=== PATIENT | male | born 1965 | race Caucasian/White ===

== ENCOUNTER → 2017-04-25 | Outpatient (CLI) | payer OTHER ==
[~2017-04-25] VITALS: Ht 172.7 cm; Wt 148.3 kg
[~2017-04-25] MED LIST: ADVIN25/60 INH; ALBUAER19 INH; AMLO5TAB2 PO; AZIT250T PO; CETI10TA10 PO; CHN/1 PO; CLON1TAB3 PO; CRS/10 PO; CYCL10TA6 PO; FLUO40CA8 PO; HYDR50TA3 PO; LEVO88TA3 PO; LOSA100T65 PO; MONT1TAB3 PO; POTA-327 PO; PRED20TA PO
[2017-04-25 15:40] VITALS: BP 138/88; PULSE 88; Ht 172.7 cm; Wt 148.3 kg
== END | disposition home or self-care (01) ==
LOC: C.NEUR 13:30
PROVIDERS: ATTEND Physician Assistant Medical
DX: G47.33 Obstructive sleep apnea (adult) (pediatric) (principal); J44.9 Chronic obstructive pulmonary disease, unspecified

== ENCOUNTER → 2017-11-10 | Outpatient (CLI) | payer OTHER ==
[~2017-11-10] VITALS: Ht 175.3 cm; Wt 153.2 kg
[2017-11-10 15:23] VITALS: BP 152/80; PULSE 104; BMI 49.9
[2017-11-10 15:24] VITALS: BP 152/80; PULSE 104; Ht 175.3 cm; Wt 153.2 kg
== END | disposition home or self-care (01) ==
LOC: C.NEUR 14:22
PROVIDERS: ATTEND Internal Medicine Pulmonary Disease
DX: G47.33 Obstructive sleep apnea (adult) (pediatric) (principal); G25.81 Restless legs syndrome; G47.61 Periodic limb movement disorder

== ENCOUNTER → 2017-11-25 | Outpatient (CLI) | payer OTHER ==
--- NOTE | 2017-11-26 04:23 | PAP/PSG TECHNICIAN REPORT ---
[facility] Marine Plumber Polysomnogram Report Study name: None Report date: 11/26/2017 Study date: 11/25/2017 Referring Physician: DR. OTTO Name: CASSIE MCGILL Interpreting Physician: Ham Otto M.D. Date of : 1965 Marine Plumber: John German RPSGT. Sex: Male Age: 51 StudyType: PSG PAP Weight: 337 lbs 21.5 INCHES Height: 51 years, Height 5' 9" Neck Circum: BMI: 49.76 Medications: ADVAIR DISKUS 250-50 MCG, AMLODIPINE BESYLATE 5 MG, CHANTIX, CLONAZEPAM 1 MG, CRESTOR 10 MG, FLUOXETINE HCL 20 MG, HYDROCHLOROTHIAZIDE 50 MG, LEVOTHYROXINE SODIUM 88 MCG, LOSARTAN POTASSIUM 100 MG, MONTELUKAST SODIUM 10 MG, OMEPRAZOLE 20 MG, POTASSIUM CHLORIDE JANELL ER 10 MEQ, TYLENOL 325 MG, VENTOLIN HFA 108 90 BASE, VIT D Patient History PATIENT HAD A SLEEP STUDY DONE IN 2012 WHICH HE WAS POSITIVE FOR KAMRYN WITH AN AHI OF 40. HE CURRENTLY WEARS BIPAP OF 20/13. HE HAS BEEN HAVING PROBLEMS WITH DAYTIME SLEEPINESS AND RESTLESS LEGS. HE IS HERE TODAY FOR AN UPDATE ON HIS BIPAP. ESS = 13 RM 7 Parameters Monitored NPSG: E1-M2, E2-M1, Fp1-M2, Fp2-M1, F3-M2, F4-M2, F4-M1, C3-M2, C4-M2, C4-M1, O1-M2, O2-M2, O2-M1, T3-M2, T4-M1, P3-M2, P4-M1, CHIN1, CHIN2, HR, EKG, Legs, PFLOW, SNOR, FLOW, CFLOW, Tidal Volume, THOR, ABDO, SpO2, PLTH, CPRESS, ETCO2 Wave, ETCO2, pH Sleep Architecture Sleep Stages Time at Lights Off 9:54:46 PM STAGES Time (min.) TST (%) Time at Lights On 4:04:46 AM Wake 166.0 -- Total Recording Time (TRT) 370.50 min. N1 56.5 28 Total Sleep Period (TSP) 364.0 min. N2 141.0 69 Total Sleep Time (TST) 204.0min. N3 6.5 3 Awake Time 166.5 min. REM 0.0 0 Wake after Sleep Onset 162.5 min. Sleep Efficiency (SE) 55 % Sleep Onset Latency (LESLI) 3.5 min. Number of Stage 1 Shifts None Awakenings 68 Stage Changes 181 Number of REM periods N/A REM 0.0 0 REM Latency NONE min. NREM 204.0 100 Body Position Analysis Supine Right Left Side Prone Vertical Total Sleep Time (min.) 93.7 27.5 132.6 160.10 0.0 0.0 Total Sleep Time (%) 22% 13% 65% 78 0% N/A% Total Sleep Time REM (min.) 0.0 0.0 0.0 None 0.0 0.0 Total Sleep Time NREM (min.) 43.9 27.5 132.6 None 0.0 0.0 Intermittent Wake (min.) 49.8 44.6 71.6 None 0.0 0.0 Total Sleep Period (%) 24% None None None None None Arousals Myoclonus (PLM) * Events Count Index Events Count Index Spontaneous 78 23 Events Awake (PLMW) 336 121.4 Respiratory 39 12.4 Events Asleep w/ Arousal (PLMA) 101 29.7 PLM 96 30 Events Asleep w/o Arousal (PLMS) 378 111.2 Snoring 11 3 Total Asleep 479 140.9 Total 222 65 Total 815 132 Respiratory Analysis * CA OA MA CH H RERA Total Count 0 12 0 0 47 0 59 Index 0.0 3.5 0.0 0 13.8 0 17.4 Mean Duration 0.0 11.7 0.0 0.00 14.9 0.0 14.3 Longest Duration 0.0 14.4 0.0 0.00 0.0 0.0 23.0 Respiratory Event Summary Total Supine ~Supine Right Left Prone REM NREM Apneas Count 12 9 3 1 2 N/A N/A 12 Index 3.5 12 1 2.2 0.9 N/A N/A 4 Hypopneas (4% Desat) Count 47 22 25 11 14 N/A N/A 47 Index 13.8 30.1 9 24.0 6.3 N/A N/A 13.8 Apneas & All Hypopneas Count 59 31 28 12 16 N/A N/A 59 Index 17.4 42 10 26 7 N/A N/A 17.4 Respiratory Events (Power Checker+All Hyp+RERA) Count 59 31 28 12 16 N/A N/A 59 Index 17.4 42 10 26.2 7.2 N/A N/A 17.4 Respiratory Related Arousal Count 39 31 20 8 12 N/A N/A 42 Index 12.4 30 7 17 5 N/A N/A 12 Snoring Analysis Supine Right Left Prone REM NREM Total Snore duration 16.1 min Snores count 84 43 237 N/A N/A 364 364 Snore mean duration 2.7 Sec Snores index 115 94 107 N/A N/A 107.1 107.1 TST with snoring (%) 7.9% Desaturation Event Summary: Minimum %SpO2 Event Count Mean/Min/Max Duration(sec.) Desaturation Index % Time In Bed > 90 148 21.7 / 4.0 / 56.0 27.4 95.2 86 - 90 6 12.1 / 7.0 / 21.8 24.0 4.4 81 - 85 0 N/A 0.0 0.3 76 - 80 0 N/A 0.0 0.0 71 - 75 0 N/A 0.0 0.0 66 - 70 1 4.8 / 4.8 / 4.8 757.9 0.0 61 - 65 0 N/A 0.0 0.0 56 - 60 0 N/A 0.0 0.0 51 - 55 0 N/A 0.0 0.0 < 50 0 N/A 0.0 0.0 Total REM NREM Awake <50% 0.0 min. 0.0 min. 0.0 min. 0.0 min. 51 - 60% 0.0 min. 0.0 min. 0.0 min. 0.0 min. 61 - 70% 0.1 min. 0.0 min. 0.1 min. 0.0 min. 71 - 80% 0.1 min. 0.0 min. 0.0 min. 0.1 min. 81 - 90% 16.2 min. 0.0 min. 8.6 min. 7.6 min. 91 - 100% 323.5 min. 0.0 min. 187.8 min. 135.7 min. Average 94 0 94 95 Minimum SpO2 67 N/A 67 77 Desaturation Event Index 24.5 0.0 25.3 24.6 # Desat. Events below 89% 23 N/A 14 9 Time(%) with Saturation below 89% 1.4 0.0 0.6 0.9 Time(min.) with Saturation below 89% 4.9 0.0 2.0 2.9 Heart Rate Analysis End Tidal CO2 Analysis Min (bpm) Max (bpm) Average (bpm) TSP (mins) % of TSP Awake 30 255 95 Above 55 mmHg 0.0 0.0 NREM 78 155 89 50-55 mmHg 13.9 6.8 REM N/A N/A N/A 45-50 mmHg 190.1 93.2 Overall 78 155 89 40-45 mmHg 0.0 0.0 35-40 mmHg 0.0 0.0 30-35 mmHg 0.0 0.0 Average ETCO2 0.0 Supplemental O2 Values Minimum O2 level: None Value Start Time End Time Marine Plumber Comments Mr. Mcgill slept in the right, left and supine positions. No cardiac arrhythmia noted. Leg movements noted. No bruxism noted. PAP initiated at an IPAP of +10 CMH2O and an EPAP of +6 CMH2O up-titrated to an optimal level of: IPAP +24 CMH2O, EPAP + 16 CMH20 which nearly eliminated all respiratory events and snoring. The patient brought in his own mask to that was used during titration Mr. Mcgill awoke to use the restroom 1 time during the night. Mr. Mcgill stated I did not sleep as well as I do when I am in my own bed. The final report will be interpreted and signed by a sleep physician. The completed physician report will then be placed in the patient medical record. Therapy Event: Therapy (cm H20) 07/07 08/08 09/08 14/06 16/08 Total Time at Pressure (min.) 17.4 19.7 6.4 5.9 8.6 7.1 32.5 TST at Pressure (min.) 12.4 9.2 4.4 4.4 3.1 4.1 11.0 # Periods 1 1 1 1 1 1 1 Sleep Onset (min.) 3.5 0.0 0.0 0.0 1.0 0.0 0.0 REM Onset (min.) N/A N/A N/A N/A N/A N/A N/A Sleep Efficiency % 71 46 68 74 35 57 33 Wakefulness (%) 28.7 53.2 31.4 25.3 64.2 42.3 66.3 Wakefulness (min.) 5.0 10.5 2.0 1.5 5.5 3.0 21.5 NREM 1 (%) 65.6 28.1 47.0 33.7 23.3 28.2 15.4 NREM 1 (min.) 11.4 5.6 3.0 2.0 2.0 2.0 5.0 NREM 2 (%) 5.7 18.7 21.6 41.0 12.5 29.5 18.3 NREM 2 (min.) 1.0 3.7 1.4 2.4 1.1 2.1 6.0 NREM 3 (%) 0.0 0.0 0.0 0.0 0.0 0.0 0.0 NREM 3 (min.) 0.0 0.0 0.0 0.0 0.0 0.0 0.0 REM (%) 0.0 0.0 0.0 0.0 0.0 0.0 0.0 REM (min.) 0.0 0.0 0.0 0.0 0.0 0.0 0.0 # Arousals 15 9 7 6 4 9 20 Arousal Index 72.3 58.4 95.9 81.3 78.1 131.8 109.6 # Snore 12 13 6 6 7 6 21 Snore Index 57.9 84.3 82.2 81.3 136.7 87.9 115.1 AHI 28.9 38.9 68.5 94.8 97.6 43.9 32.9 AHI Supine 28.9 113.6 N/A 120.0 97.6 43.9 32.9 AHI Non-Supine N/A 29.3 68.5 74.1 N/A N/A N/A NREM AHI 28.9 38.9 68.5 94.8 97.6 43.9 32.9 REM AHI N/A N/A N/A N/A N/A N/A N/A RDI 28.9 38.9 68.5 94.8 97.6 43.9 32.9 # Obstructive 1 1 1 3 1 0 2 # Central Ap 0 0 0 0 0 0 0 # Mixed 0 0 0 0 0 0 0 # Hypopneas 5 5 4 4 4 3 4 RERAS 0 0 0 0 0 0 0 Total Respiratory Events 6 6 5 7 5 3 6 Time Below SpO2 89.00% (min.) 0.0 0.1 0.0 0.1 0.0 0.0 0.2 Mean NREM SpO2 (%) 94 93 94 94 95 94 94 Mean REM SpO2 (%) N/A N/A N/A N/A N/A N/A N/A Mean Sleep SpO2 (%) 94 93 94 94 95 94 94 Min NREM SpO2 (%) 91 86 88 85 90 90 84 Min REM SpO2 (%) N/A N/A N/A N/A N/A N/A N/A Position Supine (min.) 12.4 1.1 0.0 2.0 3.1 4.1 11.0 Position Non-supine (min.) 0.0 8.2 4.4 2.4 0.0 0.0 0.0 LM Index Sleep 77.1 38.9 54.8 108.4 97.6 102.5 175.3 LM Index NREM 77.1 38.9 54.8 108.4 97.6 102.5 175.3 LM Index REM N/A N/A N/A N/A N/A N/A N/A Mean Heart Rate (bpm) 97 96 97 97 96 93 92 Min Heart Rate (bpm) 90 88 89 91 91 86 84 Therapy (cm H20) 20/14 /14 /15 23/15 24/16 Total Time at Pressure (min.) 9.0 19.5 13.7 50.5 128.0 51.7 TST at Pressure (min.) 5.5 7.0 7.2 27.0 70.0 38.7 # Periods 1 1 1 1 1 1 Sleep Onset (min.) 0.0 0.0 0.0 0.0 0.0 0.0 REM Onset (min.) N/A N/A N/A N/A N/A N/A Sleep Efficiency % 61 35 52 53 54 74 Wakefulness (%) 39.0 64.2 47.3 46.5 45.3 25.1 Wakefulness (min.) 3.5 12.5 6.5 23.5 58.0 13.0 NREM 1 (%) 12.3 20.0 21.8 22.8 3.5 2.9 NREM 1 (min.) 1.1 3.9 3.0 11.5 4.5 1.5 NREM 2 (%) 48.8 15.7 30.9 30.7 46.1 71.9 NREM 2 (min.) 4.4 3.1 4.2 15.5 59.0 37.2 NREM 3 (%) 0.0 0.0 0.0 0.0 5.1 0.0 NREM 3 (min.) 0.0 0.0 0.0 0.0 6.5 0.0 REM (%) 0.0 0.0 0.0 0.0 0.0 0.0 REM (min.) 0.0 0.0 0.0 0.0 0.0 0.0 # Arousals 11 12 11 34 43 41 Arousal Index 120.4 103.5 91.1 75.5 36.9 63.6 # Snore 15 5 18 63 98 94 Snore Index 164.2 43.1 149.1 139.8 84.0 145.8 AHI 32.8 17.2 66.3 2.2 5.1 1.6 AHI Supine 35.0 N/A N/A N/A 23.4 N/A AHI Non-Supine 0.0 17.2 66.3 2.2 3.7 1.6 NREM AHI 32.8 17.2 66.3 2.2 5.1 1.6 REM AHI N/A N/A N/A N/A N/A N/A RDI 32.8 17.2 66.3 2.2 5.1 1.6 # Obstructive 0 0 2 0 1 0 # Central Ap 0 0 0 0 0 0 # Mixed 0 0 0 0 0 0 # Hypopneas 3 2 6 1 5 1 RERAS 0 0 0 0 0 0 Total Respiratory Events 3 2 8 1 6 1 Time Below SpO2 89.00% (min.) 0.0 0.0 0.0 0.7 0.8 0.0 Mean NREM SpO2 (%) 94 94 95 94 94 93 Mean REM SpO2 (%) N/A N/A N/A N/A N/A N/A Mean Sleep SpO2 (%) 94 94 95 94 94 93 Min NREM SpO2 (%) 89 91 90 67 87 89 Min REM SpO2 (%) N/A N/A N/A N/A N/A N/A Position Supine (min.) 5.1 0.0 0.0 0.0 5.1 0.0 Position Non-supine (min.) 0.3 7.0 7.2 27.0 64.8 38.7 LM Index Sleep 164.2 163.8 107.7 164.2 160.4 144.2 LM Index NREM 164.2 163.8 107.7 164.2 160.4 144.2 LM Index REM N/A N/A N/A N/A N/A N/A Mean Heart Rate (bpm) 90 89 89 88 87 86 Min Heart Rate (bpm) 84 82 82 79 78 78
--- NOTE | 2017-11-28 12:50 | POLYSOMNOGRAPH REPORT ---
CLINICAL DATA: A 51-year-old male with a BMI of 49.76, referred for BiPAP titration study. He has severe sleep apnea. He is currently on BiPAP but is having daytime sleepiness and restless legs. His [place] Sleepiness score is 13/24. SLEEP ARCHITECTURE: Total sleep period was 364 minutes. Total sleep time was 204 minutes, all non-REM sleep. Sleep onset latency was 3.5 minutes. Sleep efficiency was 55%. Wake after sleep onset was 162.5 minutes. Sleep consisted of stage N1 28%, stage N2 69%, stage N3 3%. AROUSAL DATA: 222 arousals were recorded for an index of 65 per hour. 96 were due to PLMs. PERIODIC LIMB MOVEMENT DATA: 479 limb movements during sleep were noted for an index of 141 per hour with arousal index of 30 per hour. RESPIRATORY DATA: AHI was 17.4. There were 12 obstructive apneic episodes. The longest duration of apnea was 14.4 seconds. There were 47 hypopneic episodes. The mean duration of hypopnea was 15 seconds. OXIMETRY DATA: Nocturnal hypoxemia was seen. Oxygen lake was 67%. Mean saturation was 94%. Time below 89% was 44.9 minutes. EKG: Heart rates ranged from 78 to 155 beats per minute. No arrhythmias were noted. CERTIFIED PEST CONTROL TECHNICIAN'S COMMENTS AND TREATMENT SUMMARY: The patient slept in the right, left and supine positions. BiPAP was started at 10/6 and was titrated up to the final pressure setting of 24/16. On that pressure setting, the patient slept for 38.7 minutes with an AHI of 1.6. IMPRESSION: 1. Severe sleep apnea with correction with BiPAP 24/16. 2. Severe periodic limb movement disorder. RECOMMENDATIONS: The patient's BiPAP should be changed to 24/16. If he continues to have sleep symptoms in spite of that change, treatment for PLMD may be needed. Clinical correlation is needed. JESUSITAD
== END | disposition home or self-care (01) ==
LOC: C.NEUR 21:00
PROVIDERS: ATTEND Internal Medicine Pulmonary Disease
DX: G47.33 Obstructive sleep apnea (adult) (pediatric) (principal); G47.61 Periodic limb movement disorder

== ENCOUNTER → 2017-11-28 | Outpatient (CLI) | payer OTHER ==
[~2017-11-28] VITALS: Ht 175.3 cm; Wt 153.6 kg
[2017-11-28 13:51] VITALS: BP 142/92; PULSE 94; Ht 175.3 cm; Wt 153.6 kg
== END | disposition home or self-care (01) ==
LOC: C.NEUR 12:30
PROVIDERS: ATTEND Internal Medicine Pulmonary Disease
DX: G47.33 Obstructive sleep apnea (adult) (pediatric) (principal); G47.61 Periodic limb movement disorder

== ENCOUNTER → 2018-05-08 | Day surgery (SDC) | payer BC, OTHER ==
[2018-05-04 08:35] VITALS: Ht 172.7 cm; Wt 152.3 kg
[~2018-05-08] VITALS: Ht 172.7 cm; Wt 152.3 kg
[~2018-05-08] MED LIST changes: -ALBUAER19 INH; -AZIT250T PO; -CHN/1 PO; -CLON1TAB3 PO; +CLON1TAB4 PO; -CYCL10TA6 PO; +FLUO20CA36 PO; -FLUO40CA8 PO; +IBUP-1050 PO; +LIDOCAINE HCL 2% 2 ML VIAL (20MG/ML) ONE; +MIDAZOLAM HCL 1 MG/ML 2ML VIAL ONE; +ONDANSETRON INJ 2 MG/ML 2 ML VIAL ONE; -POTA-327 PO; +POTA10CA28 PO; -PRED20TA PO; +PROPOFOL IV EMULSION 10 MG/ML 20 ML VIAL ONE; +RQP25 PO; +SODIUM CHLORIDE 0.9% 500ML 500 ML IV ONE; +VNTHFA/IN INH
--- NOTE | 2018-05-08 09:12 | Endo History and Physical ---
History & Physical Date of Service: May 08, 2018. Chief Complaint: Referring Physician: History of Present Illness 52 yo presenting for colonoscopy with history of pneumatosis coli found on CT scan Past Medical History Arthritis, Anxiety, High Cholesterol, Sleep Apnea, Hypertension, COPD, Thyroid Disease, Kidney Disease, Depression Past Surgical History Hx Cardiac Surgery: No Hx Internal Defibrillator: No Hx Pacemaker: No Hx Abdominal Surgery: Yes (LAP GABRIEL, REPAIR OF INGUINAL HERNIA WITH MESH ) Hx of Implantable Prosthesis: No Hx Post-Op Nausea and Vomiting: No Hx Cancer Surgery: No Hx Thoracic Surgery: No Hx Orthopedic: Yes (RT/LT CARPAL TUNNEL) Hx Urinary Tract Surgery: No Family History Polyp Social History Smoking Status: Current Every Day Smoker Hx Substance Use: Yes (MARIJUANA USE PRN (ONCE EVERY 2-3 MONTHS), CLONAZEPAM PRN) Hx Alcohol Use: Yes (RARELY) Allergies Coded Allergies: No Known Allergies (Verified , 05/08/18) Current Medications Reported Home Medications Medications Dose Route/Sig Max Daily Dose Days Date Category Advil (Ibuprofen) 200 Mg Tab 800 Mg PO PRN 03/29/18 Reported Ropinirole HCl 0.25 Mg Tab 0.25 Mg PO UD 03/29/18 Reported Fluoxetine HCl 20 Mg Cap 20 Mg PO DAILY 03/29/18 Reported Micro-K Ext Rel (Potassium Chloride) 10 Meq Cap 20 Meq PO DAILY 03/29/18 Reported Ventolin Hfa (Albuterol) 200 Puffs/23678 Mcg Aers 1-2 Puffs INH Q4 PRN 03/29/18 Reported Zyrtec (Cetirizine Hcl) 10 Mg Tab 10 Mg PO QPM 12/15/14 Reported Levothyroxine Sodium 88 Mcg Tab 88 Mcg PO DAILY 12/15/14 Reported Singulair (Montelukast Sodium) 10 Mg Tab 10 Mg PO QAM 04/02/14 Reported Cozaar (Losartan Potassium) 100 Mg Tab 100 Mg PO DAILY 04/02/14 Reported Hctz (Hydrochlorothiazide) 50 Mg Tab 50 Mg PO QAM 04/02/14 Reported Crestor (Rosuvastatin Calcium) 10 Mg Tab 10 Mg PO QPM 04/02/14 Reported Klonopin (Clonazepam) 1 Mg Tab 1 Mg PO HS PRN 04/02/14 Reported Norvasc (Amlodipine Besylate) 5 Mg Tab 5 Mg PO DAILY 04/02/14 Reported Advair Diskus 250/50 60 Dose (Fluticasone Prop/Salmeterol) 1 Ea Aerp 1 Puff INH BID 04/02/14 Reported Vital Signs Weight (Kilograms): 152.27 Height (Feet): 5 Height (Inches): 8 Physical Exam General Appearance: WD/WN, no apparent distress Respiratory/Chest: Respiratory effort: no dyspnea Auscultation: breath sounds normal, CTA except as noted Cardiovascular: Apical Impulse: not displaced Heart Auscultation: RRR, normal S1 Abdomen: Bowel Sounds: normal Inspection & Palpation: soft, non-distended Assessment and Plan 52 yo presenting for colonoscopy for pneumatosis coli
--- NOTE | 2018-05-08 09:51 | GI REPORT ---
Patient Name: Esperanza Anguiano Procedure Date: 05/08/2018 9:17 AM Date of : 1965 Admit Type: Outpatient Age: 52 Gender: Male Attending MD: Fernando Ureña MD Procedure: Colonoscopy Providers: Fernando Ureña MD Referring MD: Dewayne Durand Indications: Abnormal CT of the GI tract, Pneumatosis Coli found on CT Medicines: Monitored Anesthesia Care Complications: No immediate complications. Estimated blood loss: None. Estimated Blood Loss: Estimated blood loss: none. Procedure: Pre-Anesthesia Assessment: - Pre-Anesthesia Assessment: - Prior to the procedure, a History and Physical was performed, and patient medications, allergies and sensitivities were reviewed. The patient's tolerance of previous anesthesia was reviewed. Please see Evi for complete details. - The risks and benefits of the procedure and the sedation options and risks were discussed with the patient. All questions were answered and informed consent was obtained. - Patient identification and proposed procedure were verified prior to the procedure by the physician and the nurse. The procedure was verified in the pre-procedure area in the procedure room. After obtaining informed consent, the endoscope was passed carefully and meticuously under direct vision and only advanced when the lumen was clearly identified, C02 insuflation was utilized throughout the entirity of the procedure. Throughout the procedure, the patient's blood pressure, pulse, and oxygen saturations were monitored continuously. After I obtained informed consent, the scope was passed under direct vision. Throughout the procedure, the patient's blood pressure, pulse, and oxygen saturations were monitored continuously. The scope was introduced through the anus and advanced to the cecum, identified by appendiceal orifice and ileocecal valve. The quality of the bowel preparation was fair. Findings: Multiple small-mouthed diverticula were found in the sigmoid colon. The terminal ileum appeared normal. Internal hemorrhoids were found during retroflexion. The exam was otherwise without abnormality on direct and retroflexion views. No mucosal etiology to suggest etiology of pneumatosis coli. Impression: - Preparation of the colon was fair. - Diverticulosis in the sigmoid colon. - The examined portion of the ileum was normal. - Internal hemorrhoids. - The examination was otherwise normal on direct and retroflexion views. - No specimens collected. Recommendation: - Written discharge instructions were provided to the patient. - Discharge patient to home (with escort). - Return to referring physician as previously scheduled. - If further symptoms, consider performing a CT scan of the abdomen. Fernando Ureña MD 05/08/2018 9:51:05 AM This report has been signed electronically. Note Initiated On: 05/08/2018 9:17 AM Number of Addenda: 0 I attest to the content of the Intraoperative Record and orders documented therein, exceptions below {[id number]}
--- NOTE | 2018-05-08 09:55 | Discharge Instructions ---
Endoscopy Patient Instructions Date / Procedure(s) Performed May 08, 2018. Colonoscopy Allergy Information Coded Allergies: No Known Allergies (Verified , 05/08/18) Discharge Date / Findings May 08, 2018. Normal examination other than diverticuli as well as hemorrhoids If symptoms persist a repeat CT scan of your abdomen should be ordered to exclude pneumatosis Provider Instructions Activity Restrictions - No exercising or heavy lifting for 24 hours. - Do not drink alcohol the day of the procedure. - Do not drive a car or operate machinery until the day after the procedure. - Do not make any important decisions or sign important papers in 24 hours after the procedure. Following Day: - Return to full activity which may include returning to work/school. Diet Start your diet with liquids and light foods (jello, soup, juice, toast). Then eat your usual diet if not nauseated. Treatment For Common After Affects For mild abdominal pain, bloating, or excessive gas: - Rest - Eat lightly - Lie on right side Follow-Up Information Follow-up with Dr Durand as scheduled Anesthesia Information What You Should Know You have had a procedure that required some medicine to reduce anxiety and discomfort. This treatment is called moderate sedation. After receiving the treatment, you may be sleepy, but you will be able to breathe on your own. The effects of the treatment may last for several hours. Follow these instructions along with Activity/Diet recommendations noted above: * Do NOT do anything where dizziness or clumsiness would be dangerous. * Rest quietly at home today, then you can be up and about tomorrow. * Have a responsible person stay with you the rest of today. * You may have had an I.V. today. If so, you may take the dressing off later today. Recommendations Call your doctor if: * Trouble breathing * Continuous vomiting for more than 24 hours * Temperature above 101 degrees * Severe abdominal pain or bloating * Pain not relieved by pain medicine ordered * There is increased drainage or redness from any incision * A large amount of rectal bleeding greater than 2-3 tablespoons. (If you had a polyp/s removed or have hemorrhoids, a small amount of blood - from the rectum is to be expected.) * You have any unanswered questions or concerns. IN THE EVENT OF A SERIOUS EMERGENCY, GO TO THE NEAREST EMERGENCY ROOM Your discharge instructions were prepared by provider Fernando Ureña. Patient Instructions Signature Page Esperanza Anguiano Patient (or Guardian) Signature/Date: I have read and understand the instructions given to me by my caregivers. Caregiver/RN/Doctor Signature/Date: The above-named patient and/or guardian has received patient instructions on this date. + Original Patient Signature Page (only) stays with chart. Please make copy for patient.
--- NOTE | 2018-05-08 09:57 | Anesthesiology Progress Note ---
Anesthesia Post Op Note Date & Time May 08, 2018 at 09:56 Vital Signs Vital Signs Past 12 Hours Date Time Temp Pulse Resp B/P (MAP) Pulse Ox O2 Delivery O2 Flow Rate FiO2 05/08/18 09:48 36.7 81 16 174/89 (117) 98 Room Air 05/08/18 09:07 36.7 84 20 193/100 (131) 97 Room Air Notes Mental Status: alert / awake / arousable, participated in evaluation Pt Amnestic to Procedure: Yes Nausea / Vomiting: adequately controlled Pain: adequately controlled Airway Patency, RR, SpO2: stable & adequate BP & HR: stable & adequate Hydration State: stable & adequate Anesthetic Complications: no major complications apparent
[2018-05-08 10:18] VITALS: BP 169/82; PULSE 75; O2SAT 97
== END | disposition home or self-care (01) ==
LOC: C.GI 08:23
PROVIDERS: ATTEND Internal Medicine
DX: K63.89 Other specified diseases of intestine (principal); K57.30 Diverticulosis of large intestine without perforation or abscess without bleeding; K64.8 Other hemorrhoids; M19.90 Unspecified osteoarthritis, unspecified site; F41.9 Anxiety disorder, unspecified; G25.81 Restless legs syndrome; E78.00 Pure hypercholesterolemia, unspecified; G47.30 Sleep apnea, unspecified; F12.90 Cannabis use, unspecified, uncomplicated; I10 Essential (primary) hypertension; J44.9 Chronic obstructive pulmonary disease, unspecified; E07.9 Disorder of thyroid, unspecified; N28.9 Disorder of kidney and ureter, unspecified; F32.9 Major depressive disorder, single episode, unspecified; F17.200 Nicotine dependence, unspecified, uncomplicated; E66.9 Obesity, unspecified; Z79.899 Other long term (current) drug therapy

== ENCOUNTER 2025-02-11 11:27 | Inpatient (IN) ==
[2025-02-11] MEDS: oxyCODONE HCL IR 5 MG TAB (IMMEDIATE RELEASE) PO STA (12:06)
--- NOTE | 2025-02-11 12:46 | CT Scan Report ---
CT soft tissue neck wo con HISTORY: 59 years-old Male concern for dental abscess, right side pain acute right neck pain COMPARISON: None TECHNIQUE: Multiple axial CT images of the soft tissues of the neck were obtained without IV contrast . A dose lowering technique was used consistent with the principals of ALARA. FINDINGS: Subcentimeter probable lipoma of the left thyroid lobe. No pathologically enlarged lymph nodes. Unrem arkable parotid and submandibular glands. The imaged intracranial structures appear unremarkable. The orbits are within normal limits. Epiglottis, glottis and subglottic airway appears normal. Partially imaged focal groundglass nodular opacity of the right upper lobe measures 1.7 cm on image 114 series 2. Small right and large left mastoid effusions. Minimal polypoid mucosal thickening of the maxillary si nuses. There is mild sigmoidal bowing and spurring of the nasal septum. Degenerative changes of the c ervical spine. Numerous dental caries periapical cysts are most pronounced involving the right mandib ular bicuspids and first molar. There is moderate cortical dehiscence adjacent to the first molar per iapical cyst. No significant associated inflammatory changes or fluid collections. IMPRESSION: 1. Multifocal odontogenic disease. 2. No significant acute inflammatory changes or fluid collections. 3. No pathologically enlarged lymph nodes. 4. Partially imaged 1.7 cm groundglass nodular focus of the right upper lobe. Three-month follow-up c hest CT recommended. ACT 112: Positive. There are findings on this exam that require communication between the performing entity and the patient following Patient Test Result Information Act ([place] Act 112) guidelines. The above report was generated using voice recognition software. It may contain grammatical, syntax o r spelling errors. Electronically signed by: Pako Bland M.D. 02/11/2025 12:45 PM
[2025-02-11] MEDS: MoRPHine SULFATE 4 MG/ML 1 ML CARP\\VIAL IM STA (13:33)
--- NOTE | 2025-02-11 14:35 | Emergency Department Note ---
ED Provider Note History of Present Illness Chief Complaint: Dental/Oral Stated Complaint: TOOTH PAIN, SEVERE Time Seen by Provider: 02/11/25 11:51 Source: patient Mode of arrival: ambulatory Limitations: no limitations Patient is a 59-year-old male who presents to the emergency department with complaints of severe tooth pain. Patient states that he was seen here in the emergency department yesterday for the same symptoms and his pain has gotten worse. Patient states that he has an abscess on the right side and is scheduled to see his dentist but not until March 03. Patient states that he has been using Tylenol, Motrin, and Orajel at home with no relief of his symptoms. Patient was started on Augmentin by his dentist on Monday. Patient was also seen here in the emergency department yesterday and placed on tramadol for his severe pain but notes that that has not helped his pain at all. Patient states that he has not slept in days due to his discomfort. Home Medications Medication Instructions Recorded Confirmed Type albuterol sulfate 90 mcg/actuation 2 puffs inhalation Q4H PRN sob 08/18/19 02/11/25 History aerosol inhaler fluticasone 250 mcg-salmeterol 50 1 puffs inhalation BID 08/18/19 02/11/25 History mcg/dose blistr powdr for inhalation hydrochlorothiazide 50 mg tablet 50 mg PO DAILY 08/18/19 02/11/25 History levothyroxine 88 mcg tablet 88 mcg PO DAILY 08/18/19 02/11/25 History losartan 100 mg tablet 100 mg PO DAILY 08/18/19 02/11/25 History potassium chloride 10 mEq 20 meq PO DAILY 08/18/19 02/11/25 History tablet,extended release rosuvastatin 10 mg tablet 10 mg PO PM 08/18/19 02/11/25 History BiPap Machine #1 ea 03/15/22 02/11/25 Rx amlodipine 10 mg tablet 10 mg PO DAILY 02/11/25 02/11/25 History amoxicillin 875 mg-potassium 1 tab PO BID 02/11/25 02/11/25 History clavulanate 125 mg tablet armodafinil 250 mg tablet 250 mg PO QAM 02/11/25 02/11/25 History bupropion HCl 150 mg 24 hr tablet, 150 mg PO QAM 02/11/25 02/11/25 History extended release fluoxetine 40 mg capsule 40 mg PO DAILY 02/11/25 02/11/25 History levocetirizine 5 mg tablet 5 mg PO PM 02/11/25 02/11/25 History meloxicam 15 mg tablet 15 mg PO DAILY 02/11/25 02/11/25 History metformin 500 mg tablet,extended 500 mg PO DAILY 02/11/25 02/11/25 History release 24 hr metoprolol succinate 50 mg 50 mg PO DAILY 02/11/25 02/11/25 History tablet,extended release 24 hr montelukast 10 mg tablet 10 mg PO DAILY 02/11/25 02/11/25 History ropinirole 0.25 mg tablet 0.25 - 0.5 mg PO HS PRN periodic 02/11/25 02/11/25 History limb movement Allergies Allergy/AdvReac Type Severity Reaction Status Date / Time No Known Drug Allergies Allergy Verified 02/16/24 10:07 Past Med/Surg History Problem List (Updated 02/11/25 @ 15:47 by Adri Morales PA-C) Tobacco abuse Diabetes mellitus, type II Dental abscess (Acute) Toothache (Acute) Dental caries (Acute) Fracture of tooth (Acute) Depression (Acute) Dyslipidemia (Acute) Adult hypothyroidism (Acute) Obesity (Acute) Obstructive sleep apnea (Acute) Periodic limb movement disorder (PLMD) (Acute) Restless legs syndrome (Acute) HTN (hypertension) (Chronic) Asthma (Chronic) COPD (chronic obstructive pulmonary disease) (Chronic) Low testosterone (Chronic) Medical History (Updated 02/11/25 @ 15:47 by Adri Morales PA-C) Acute cholecystitis Diverticulosis Umbilical hernia, incarcerated Hernia Surgical History Hx of hernia repair Hx laparoscopic cholecystectomy Social History Smoking Status: Current every day smoker Tobacco Type: Cigarettes Cigarettes Per Day: 1.5 ppd; Hx Alcohol Use: No Hx Substance Use: Yes Non-Prescribed Medications Comment: marijuana. Last used 1 year ago Preferred Language: Tajik Feels Safe at Home: Yes Physical Exam Vital Signs Vital Signs - 24 hr 02/11/25 11:42 02/11/25 13:30 02/11/25 15:29 Temperature 36.7 C Temperature Source Temporal Artery Scan Pulse Rate 88 Pulse Rate [Finger] 67 58 L Respiratory Rate 20 16 20 Respiratory Effort / Characteristics Non-Labored Spontaneous Non-Labored Spontaneous Respiratory Depth Normal Normal Respiratory Pattern Regular Blood Pressure 142/79 H Blood Pressure [Right Arm] 133/75 142/69 H Blood Pressure Mean 100 Blood Pressure Mean [Right Arm] 94 93 Blood Pressure Position Sitting Blood Pressure Position [Right Arm] Sitting Pulse Oximetry 96 96 94 Oxygen Delivery Method Room Air Room Air Sepsis Recent Fever Within 48 Hours No Sepsis New/Unexplained Change in Mental Status No Sepsis Action Taken by Nursing No Action Required PHYSICAL EXAM: Vitals are noted on the nurse's note and reviewed by myself. Vital signs stable. Temperature 36.7. GENERAL: 59-year-old male, in no acute distress, nondiaphoretic, well-developed well-nourished. MOUTH: The right lower teeth are very carious and the gum is tender around it, without any significant swelling, discharge or signs of an obvious abscess. The remainder of the pharynx and tonsils are without erythema, edema, or exudate. The airway is patent. There is no facial swelling, cervical or submandibular lymphadenopathy. The patient appears uncomfortable and in severe pain. The patient has overall poor dental hygiene. EARS: External auditory canals clear, tympanic membranes pearly owens without erythema or effusion bilaterally. HEART: RRR without murmurs, gallops, or rubs LUNGS: CTA bilaterally without wheezes, rhonchi, or rales. Course Administered Medications Discontinued Medications Ketorolac Tromethamine (Ketorolac Tromethamine 15 Mg/Ml Vial) 15 mg IV NOW STA Stop: 02/11/25 14:36 Last Admin: 02/11/25 15:29 Dose: 15 mg Documented By: AVM Morphine Sulfate (Morphine Sulfate 4 Mg/Ml 1 Ml Carp\Vial) 4 mg IM NOW STA Stop: 02/11/25 13:24 Last Admin: 02/11/25 13:33 Dose: 4 mg Documented By: Oxycodone HCl (Oxycodone Hcl Ir 5 Mg Tab (Immediate Release)) 10 mg PO NOW STA Stop: 02/11/25 12:04 Last Admin: 02/11/25 12:06 Dose: 10 mg Documented By: [facility] Medical Decision Making Differential Diagnosis Dental caries, dental abscess, peritonsillar abscess, cellulitis, among others. Medical Records Attestation: I reviewed the patient's medical records. Home Medications was personally reviewed by me Laboratory Data Attestation: I reviewed the patient's lab results. 02/11/25 14:53 02/11/25 14:53 Lab Results 02/11/25 Range/Units 14:53 WBC 9.27 (4.8-10.8) K/ul RBC 4.62 L (4.70-6.10) M/uL Hgb 13.5 L (14.0-18.0) g/dl Hct 39.3 L (42.0-52.0) % MCV 85.1 (80.0-100.0) fL MCH 29.2 (25.0-34.0) pg MCHC 34.4 (32.0-36.0) g/dL RDW Std Deviation 42.4 (36.4-46.3) fL RDW Coeff of Tripp 13.7 (11.5-14.5) % Plt Count 159 (130-400) K/uL MPV 10.3 (9.4-12.4) fL Immature Gran % (Auto) 0.5 % Neut % (Auto) 65.3 % Lymph % (Auto) 16.0 % Swain % (Auto) 7.6 % Eos % (Auto) 9.8 % Baso % (Auto) 0.8 % Neut # (Auto) 6.06 (1.40-6.50) K/uL Lymph # (Auto) 1.48 (1.20-3.40) K/uL Swain # (Auto) 0.70 H (0.11-0.59) K/uL Eos # (Auto) 0.91 H (0.00-0.50) K/uL Baso # (Auto) 0.07 (0.00-0.20) K/uL Immature Gran # (Auto) 0.05 (0.01-0.20) K/uL Sodium 138 (136-145) mmol/L Potassium 3.4 L (3.5-5.1) mmol/L Chloride 102 (98-107) mmol/L Carbon Dioxide 29 (21-32) mmol/L Anion Gap 7 (3-11) BUN 16 (6-23) mg/dl Creatinine 0.98 (0.6-1.4) mg/dl Est Cr Clr Drug Dosing 114.9 ml/min eGFR 89.94 BUN/Creatinine Ratio 16.3 (10-20) Glucose 118 H (70-99(Fasting)) mg/dl Calcium 8.9 (8.6-10.3) mg/dl Total Bilirubin 0.7 (0.2-1.0) mg/dl AST 16 (13-39) U/L ALT 16 (7-52) U/L Alkaline Phosphatase 87 (34-104) U/L Total Protein 7.0 (6.0-8.3) gm/dl Albumin 4.1 (3.4-5.0) gm/dl Globulin 2.9 (2.5-4.0) gm/dl Albumin/Globulin Ratio 1.4 (0.9-2) Imaging Data Radiologist's Impression: Soft Tissue Neck CT 02/11/25 12:02 CT soft tissue neck wo con HISTORY: 59 years-old Male concern for dental abscess, right side pain acute right neck pain COMPARISON: None TECHNIQUE: Multiple axial CT images of the soft tissues of the neck were obtained without IV contrast. A dose lowering technique was used consistent with the principals of ALARA. FINDINGS: Subcentimeter probable lipoma of the left thyroid lobe. No pathologically enlarged lymph nodes. Unremarkable parotid and submandibular glands. The imaged intracranial structures appear unremarkable. The orbits are within normal limits. Epiglottis, glottis and subglottic airway appears normal. Partially imaged focal groundglass nodular opacity of the right upper lobe measures 1.7 cm on image 114 series 2. Small right and large left mastoid effusions. Minimal polypoid mucosal thickening of the maxillary sinuses. There is mild sigmoidal bowing and spurring of the nasal septum. Degenerative changes of the cervical spine. Numerous dental caries periapical cysts are most pronounced involving the right mandibular bicuspids and first molar. There is moderate cortical dehiscence adjacent to the first molar periapical cyst. No significant associated inflammatory changes or fluid collections. IMPRESSION: 1. Multifocal odontogenic disease. 2. No significant acute inflammatory changes or fluid collections. 3. No pathologically enlarged lymph nodes. 4. Partially imaged 1.7 cm groundglass nodular focus of the right upper lobe. Three-month follow-up chest CT recommended. ACT 112: Positive. There are findings on this exam that require communication between the performing entity and the patient following Patient Test Result Information Act ([place] Act 112) guidelines. The above report was generated using voice recognition software. It may contain grammatical, syntax or spelling errors. Electronically signed by: Pako Bland M.D. 02/11/2025 12:45 PM MDM Narrative Patient is a 59-year-old male who presents to the emergency department with complaints of severe tooth pain. Patient states that he was seen here in the emergency department yesterday for the same symptoms and his pain has gotten worse. Patient states that he has an abscess on the right side and is scheduled to see his dentist but not until March 03. Patient states that he has been using Tylenol, Motrin, and Orajel at home with no relief of his symptoms. Patient was started on Augmentin by his dentist on Monday. Patient was also seen here in the emergency department yesterday and placed on tramadol for his severe pain but notes that that has not helped his pain at all. Patient states that he has not slept in days due to his discomfort. Patient was evaluated by myself and findings were noted in the physical exam above. Patient was initially ordered a CT of the soft tissue of the neck to rule out presence of an abscess as well as oxycodone for pain. Upon reevaluation the patient states that he still having pretty severe pain and is writhing around in the bed. Patient was ordered a dose of IM morphine for his discomfort at this time. Patient CT was completed and interpreted by radiology to show multifocal odontogenic disease. There was no significant acute inflammatory changes or fluid collections noted. I reached out to Dr. Kris Dee who is on-call for oral maxillary facial and reviewed the case with Dr. Dee. I gave him a full report of the patient's chief complaint, current status and the results of his imaging and he agreed that the patient would likely need a procedure to remove the broken teeth and possibly the resulting abscess however he did not feel that that would be something he could do in the outpatient office with the amount of pain that the patient is in. I agree that the patient is in pretty severe pain and this is his second ER visit because he is not able to control the pain in the outpatient setting. I discussed the results of the CT and my discussion with Dr. Dee with the patient and the patient verbalized understanding. The patient stated that he would prefer admission to the hospital for further evaluation and management as he does not feel comfortable going home that he can control his pain at home. Patient had minimal relief with oxycodone here in the emergency department today. Dr. Dee noted that he would be able to see the patient while he was still in the ER or once he is admitted to the hospital and hopefully intervene while he is admitted here in the hospital. Patient verbalized understanding and was agreeable to the plan for admission to the hospital under the medical service and consultation from Dr. Dee. I ordered the patient IV placement and lab work at this time due to his pending admission to the hospital. [facility] and gave them a full report on the patient's chief complaint, current status and the results of his imaging. [facility] also [facility] that I had a pending lab work ordered for this patient. The [facility] the [facility]. [facility] and Dr. Dee's documentation for further evaluation and management of this patient. Impression Dental caries, Toothache, Dental abscess Discharge Plan Visit Data Chief Complaint: Dental/Oral Stated Complaint: TOOTH PAIN, SEVERE ED Provider: Cain Stevens ED Midlevel Provider: Galina Glynn Discharge Problem: Dental caries, Toothache, Dental abscess Patient Disposition: Admitted As Inpatient Condition: Fair Forms Stand Alone Forms: [facility] Prescriptions Prescriptions: No Action (DME) BiPap Machine Misc See Rx Instructions .MEDSUPPLY Qty: 1 0RF Rx Instructions: BIPAP 25/17 with heated humidification, tubing, and supplies. AIDEE: 99+ years. fluticasone propion-salmeterol 250-50 mcg/dose blister with device 1 puffs INH BID albuterol sulfate 90 mcg/actuation HFA aerosol inhaler 2 puffs INH Q4H PRN (Reason: sob) rosuvastatin 10 mg tablet 10 mg PO PM hydrochlorothiazide 50 mg tablet 50 mg PO DAILY losartan 100 mg tablet 100 mg PO DAILY potassium chloride 10 mEq tablet extended release 20 meq PO DAILY levothyroxine 88 mcg tablet 88 mcg PO DAILY metoprolol succinate 50 mg tablet extended release 24 hr 50 mg PO DAILY meloxicam 15 mg tablet 15 mg PO DAILY Rx Instructions: per pt, he says he wont need while in hospital metformin 500 mg tablet extended release 24 hr 500 mg PO DAILY bupropion HCl 150 mg tablet extended release 24 hr 150 mg PO QAM ropinirole 0.25 mg tablet 0.25 - 0.5 mg PO HS PRN (Reason: periodic limb movement) Rx Instructions: Take 1-2 tabs at bedtime PO PRN; montelukast 10 mg tablet 10 mg PO DAILY Rx Instructions: TAKE 1 TABLET DAILY. armodafinil 250 mg tablet 250 mg PO QAM fluoxetine 40 mg capsule 40 mg PO DAILY amlodipine 10 mg tablet 10 mg PO DAILY amoxicillin-pot clavulanate 875-125 mg tablet 1 tab PO BID Rx Instructions: Rx on 02/09/25 levocetirizine 5 mg Tablet 5 mg PO PM Referrals Referrals: Dewayne Durand MD [Primary Care Provider] - ED DC CONDITION Conditon at Discharge Condition at Discharge: Fair
--- NOTE | 2025-02-11 14:56 | History & Physical Report ---
Date of Service February 11, 2025 Assessment & Plan (1) Dental abscess: (2) Toothache: Plan: Patient is 59 year old male with PMH HTN, dyslipidemia, DM II, KAMRYN, RLS, periodic limb movement disorder, asthma, COPD, hypothyroidism, morbid obesity, tobacco use presented to ER with c/o dental pain x 4 days. On Augemtin x 2 days without relief In ER afebrile, Vitals stable. No leukocytosis CT soft tissue neck: Multifocal odontogenic disease. No significant acute infla mmatory changes or fluid collections. No pathologically enlarged lymph nodes. Hold oral Augmentin and start Unasyn Scheduled Tylenol, oxycodone, Dilaudid prn pain NPO MN in case of procedure Oral maxillofacial consult CBC, BMP in am #Lung nodule CT soft tissue neck noted partially imaged 1.7 cm groundglass nodular focus of the right upper lobe. Three-month follow-up chest CT recommended #Hypokalemia K: 3.4 Replace and monitor (3) Diabetes mellitus, type II: Plan: A1c: 9.5 on 11/05/24 Hold home metformin Diabetic diet Novolog sliding scale per protocol A1c in AM (4) HTN (hypertension): Plan: Continue amlodipine, losartan, metoprolol succinate Hold HCTZ for tomorrow morning (5) Dyslipidemia: Plan: Continue rosuvastatin (6) Adult hypothyroidism: Plan: Continue levothyroxine (7) Periodic limb movement disorder (PLMD): (8) Restless legs syndrome: Plan: Continue ropinirole (9) Obstructive sleep apnea: Plan: Continue Bipap HS Continue armodafinil (10) Asthma: (11) COPD (chronic obstructive pulmonary disease): Plan: No signs exacerbation Continue home inhalers (12) Depression: Plan: Continue fluoxetine, bupropion (13) Tobacco abuse: Plan: Smoking cessation encouraged Nicotine patch DVT Prophylaxis SCDs Admit med surg Full Code as per discussion with pt Follows with Dr Durand for routine care Pt was seen and care coordinated with Dr Rossi. See addendum I spent a total of 60 minutes reviewing notes, outpatient records, labs, medication, coordinating, documenting and providing care for this patient excluding time spent in the performance of separately billed services and excluding time spent by another provider/QHP. History of Present Illness Chief Complaint: dental pain Primary Care Provider: Dewayne Durand MD Patient is 59 year old male with PMH HTN, dyslipidemia, DM II, KAMRYN, RLS, periodic limb movement disorder, asthma, COPD, hypothyroidism, morbid obesity, tobacco use presented to ER with c/o dental pain x 4 days. Patient reports that he has known dental fracture about one year ago and at that time saw his dentist and was given antibiotics and pain resolved and was referred to oral surgeon however patient states did not follow up. He states 4 days ago started with pain to right lower teeth he feels in area of old dental fracture. He was started on Augmentin and taking OTC pain medication without relief. He was seen at [facility] ER yesterday and given Tramadol. Hasn't noticed facial edema. States pain is severe and not controlled. Has chronic leg swelling. Having some STUBBS. Denies fever/chills, N/V/D/C, dysphagia, dizziness, syncope, vision changes, neck pain, CP, SOB, palpitations, cough, sore throat, choking, otalgia, rhinorrhea, abdominal pain, paresthesias, extremity weakness, rashes, urinary symptoms. Allergies Allergy/AdvReac Type Severity Reaction Status Date / Time No Known Drug Allergies Allergy Verified 02/16/24 10:07 Home Medications Medication Instructions Recorded Confirmed Type albuterol sulfate 90 mcg/actuation 2 puffs inhalation Q4H PRN sob 08/18/19 02/11/25 History aerosol inhaler fluticasone 250 mcg-salmeterol 50 1 puffs inhalation BID 08/18/19 02/11/25 History mcg/dose blistr powdr for inhalation hydrochlorothiazide 50 mg tablet 50 mg PO DAILY 08/18/19 02/11/25 History levothyroxine 88 mcg tablet 88 mcg PO DAILY 08/18/19 02/11/25 History losartan 100 mg tablet 100 mg PO DAILY 08/18/19 02/11/25 History potassium chloride 10 mEq 20 meq PO DAILY 08/18/19 02/11/25 History tablet,extended release rosuvastatin 10 mg tablet 10 mg PO PM 08/18/19 02/11/25 History BiPap Machine #1 ea 03/15/22 02/11/25 Rx amlodipine 10 mg tablet 10 mg PO DAILY 02/11/25 02/11/25 History amoxicillin 875 mg-potassium 1 tab PO BID 02/11/25 02/11/25 History clavulanate 125 mg tablet armodafinil 250 mg tablet 250 mg PO QAM 02/11/25 02/11/25 History bupropion HCl 150 mg 24 hr tablet, 150 mg PO QAM 02/11/25 02/11/25 History extended release fluoxetine 40 mg capsule 40 mg PO DAILY 02/11/25 02/11/25 History levocetirizine 5 mg tablet 5 mg PO PM 02/11/25 02/11/25 History meloxicam 15 mg tablet 15 mg PO DAILY 02/11/25 02/11/25 History metformin 500 mg tablet,extended 500 mg PO DAILY 02/11/25 02/11/25 History release 24 hr metoprolol succinate 50 mg 50 mg PO DAILY 02/11/25 02/11/25 History tablet,extended release 24 hr montelukast 10 mg tablet 10 mg PO DAILY 02/11/25 02/11/25 History ropinirole 0.25 mg tablet 0.25 - 0.5 mg PO HS PRN periodic 02/11/25 02/11/25 History limb movement Past Med/Surg History Problem List (Updated 02/11/25 @ 15:47 by Adri Morales PA-C) Tobacco abuse Diabetes mellitus, type II Dental abscess (Acute) Toothache (Acute) Dental caries (Acute) Fracture of tooth (Acute) Depression (Acute) Dyslipidemia (Acute) Adult hypothyroidism (Acute) Obesity (Acute) Obstructive sleep apnea (Acute) Periodic limb movement disorder (PLMD) (Acute) Restless legs syndrome (Acute) HTN (hypertension) (Chronic) Asthma (Chronic) COPD (chronic obstructive pulmonary disease) (Chronic) Low testosterone (Chronic) Medical History (Updated 02/11/25 @ 15:47 by Adri Morales PA-C) Acute cholecystitis Diverticulosis Umbilical hernia, incarcerated Hernia Surgical History Hx of hernia repair Hx laparoscopic cholecystectomy Social History Smoking Status: Current every day smoker Tobacco Type: Cigarettes Cigarettes Per Day: 1.5 ppd; Hx Alcohol Use: No Hx Substance Use: Yes Non-Prescribed Medications Comment: marijuana. Last used 1 year ago Preferred Language: [place] Citizen Feels Safe at Home: Yes Review of Systems Review of Systems: All systems reviewed & are unremarkable except as noted in HPI & below Physical Exam Physical Exam: PE per Dr Rossi Results & Data Results & Data Vital Signs (Past 12 Hours) Vital Signs Temp Pulse Pulse Resp BP BP Pulse Ox 02/11/25 13:30 67 16 133/75 96 02/11/25 11:42 36.7 C 88 20 142/79 H 96 O2 Del Method 02/11/25 13:30 Room Air 02/11/25 11:42 Room Air Laboratory Results Short CBC 02/11/25 Range/Units 14:53 WBC 9.27 (4.8-10.8) K/ul Hgb 13.5 L (14.0-18.0) g/dl Hct 39.3 L (42.0-52.0) % Plt Count 159 (130-400) K/uL BMP 02/11/25 14:53 Sodium 138 Potassium 3.4 L Chloride 102 Carbon Dioxide 29 BUN 16 Creatinine 0.98 Glucose 118 H Calcium 8.9 Liver Function 02/11/25 Range/Units 14:53 Total Bilirubin 0.7 (0.2-1.0) mg/dl AST 16 (13-39) U/L ALT 16 (7-52) U/L Alkaline Phosphatase 87 (34-104) U/L Albumin 4.1 (3.4-5.0) gm/dl Diagnostic Findings Soft Tissue Neck CT 02/11/25 12:02 CT soft tissue neck wo con HISTORY: 59 years-old Male concern for dental abscess, right side pain acute right neck pain COMPARISON: None TECHNIQUE: Multiple axial CT images of the soft tissues of the neck were obtained without IV contrast. A dose lowering technique was used consistent with the principals of JOSEFA. FINDINGS: Subcentimeter probable lipoma of the left thyroid lobe. No pathologically enlarged lymph nodes. Unremarkable parotid and submandibular glands. The imaged intracranial structures appear unremarkable. The orbits are within normal limits. Epiglottis, glottis and subglottic airway appears normal. Partially imaged focal groundglass nodular opacity of the right upper lobe measures 1.7 cm on image 114 series 2. Small right and large left mastoid effusions. Minimal polypoid mucosal thickening of the maxillary sinuses. There is mild sigmoidal bowing and spurring of the nasal septum. Degenerative changes of the cervical spine. Numerous dental caries periapical cysts are most pronounced involving the right mandibular bicuspids and first molar. There is moderate cortical dehiscence adjacent to the first molar periapical cyst. No significant associated inflammatory changes or fluid collections. IMPRESSION: 1. Multifocal odontogenic disease. 2. No significant acute inflammatory changes or fluid collections. 3. No pathologically enlarged lymph nodes. 4. Partially imaged 1.7 cm groundglass nodular focus of the right upper lobe. Three-month follow-up chest CT recommended. ACT 112: Positive. There are findings on this exam that require communication between the performing entity and the patient following Patient Test Result Information Act ([place] Act 112) guidelines. The above report was generated using voice recognition software. It may contain grammatical, syntax or spelling errors. Electronically signed by: Pako Bland M.D. 02/11/2025 12:45 PM Supervising Physician Co-Signing Physician Notes Presents with right lower teeth pain, severe has been worsening despite recent ER visit/antibiotics On exam, General: Obese, not in distress Eyes: PERRL, conjunctivae normal, not pale, anicteric sclerae, EOM intact bilaterally ENMT: Poor oral hygiene, some missing teeth, +caries, right lower jaw tenderness. Respiratory: Normal respiratory effort, no respiratory distress, lungs clear to auscultation, no crackles and no wheezes Cardiovascular: RRR S1 S2 Gastrointestinal (Abdomen): Abdomen is not distended, soft, non-tender to palpation, no guarding, no palpable hepatosplenomegaly, normal bowel sounds Musculoskeletal: +bilateral pedal edema Neurologic: Alert and oriented x 3, No focal weakness, sensation grossly intact Psychiatric: Euthymic affect Lab notable for K 3.4 CT Neck noted multiple odontogenic disease and 1.7cm foci in lungs OMFS consult NPO PMN in case of procedure IV unasyn Smokes 1-1.5ppd for over 30 years Counseled regarding smoking cessation Needs follow up of CT finding in lung Other plans as detailed by Adri Morales PA-C I spent a total of 35 minutes coordinating, documenting and providing care for this patient excluding time spent in performance of separately billed services
[2025-02-11 15:06] LABS: Basophils # (auto) 0.07 K/uL (0.00-0.20); Basophils % (auto) 0.8 %; Eosinophils # (auto) 0.91 K/uL (0.00-0.50); Eosinophils % (auto) 9.8 %; Hematocrit (blood only) 39.3 % (42.0-52.0); Hemoglobin 13.5 g/dl (14.0-18.0); Immature Granulocytes # (auto) 0.05 K/uL (0.01-0.20); Immature Granulocytes % (auto) 0.5 %; Lymphocytes # (auto) 1.48 K/uL (1.20-3.40); Mean Corpuscular Hemoglobin 29.2 pg (25.0-34.0); Mean Corpuscular Hgb Conc 34.4 g/dL (32.0-36.0); Mean Corpuscular Volume 85.1 fL (80.0-100.0); Mean Platelet Volume 10.3 fL (9.4-12.4); Monocytes % (auto) 7.6 %; Neutrophils # (auto) 6.06 K/uL (1.40-6.50); Neutrophils % (auto) 65.3 %; Platelet Count 159 K/uL (130-400); RDW Coefficient of Variation 13.7 % (11.5-14.5); RDW Standard Deviation 42.4 fL (36.4-46.3); Red Blood Count 4.62 M/uL (4.70-6.10); White Blood Count 9.27 K/ul (4.8-10.8)
[2025-02-11 15:25] LABS: Albumin Globulin Ratio 1.4 (0.9-2); Albumin Level 4.1 gm/dl (3.4-5.0); BUN Creatinine Ratio 16.3 (10-20); Bilirubin,Total 0.7 mg/dl (0.2-1.0); Calcium 8.9 mg/dl (8.6-10.3); Creatinine Clr Calc Pharmacy 114.9 ml/min; Globulin 2.9 gm/dl (2.5-4.0); Potassium 3.4 mmol/L (3.5-5.1)
[2025-02-11] MEDS: KETOROLAC TROMETHAMINE 15 MG/ML VIAL IV STA (15:29)
[2025-02-11] MEDS: AMPICILLIN/SULBACTAM SOD 3,000 MG/100 ML BAG IV STA (16:00)
[2025-02-11] MEDS: POTASSIUM CHLORIDE CRTAB 20 MEQ TABCR PO STA (16:00)
[2025-02-11] MEDS ORDERED: NALOXONE HCL 0.4 MG/1 ML VIAL/CARP IV PRN (17:30)
[2025-02-11] MEDS ORDERED: ALBUTEROL HFA 8 GM INHALER INH PRN (17:30)
[2025-02-11] MEDS ORDERED: CARBOHYDRATES FOR HYPOGLYCEMIA PO PRN (17:30)
[2025-02-11] MEDS ORDERED: GLUCOSE 10 TAB/TUBE PO PRN (17:30)
[2025-02-11] MEDS ORDERED: GLUCAGON FOR INJ 1 MG VIAL SQ PRN (17:30)
[2025-02-11] MEDS ORDERED: POLYETHYLENE (MIRALAX) 17 GM PACK PO PRN (17:30)
[2025-02-11] MEDS ORDERED: GLUCOSE 40% GEL 15 GM TUBE PO PRN (17:30)
[2025-02-11] MEDS ORDERED: MAGNESIUM HYDROXIDE SUSP 30 ML UDC PO PRN (17:30)
[2025-02-11] MEDS ORDERED: DEXTROSE 50% 50 ML SYRINGE IV PRN (17:30)
[2025-02-11] MEDS ORDERED: ONDANSETRON INJ 2 MG/ML 2 ML VIAL IV PRN (17:30)
--- NOTE | 2025-02-11 17:34 | Oral/Maxillofacial Consult ---
Date of Consultation February 11, 2025 Assessment & Plan (1) Dental caries: (2) Toothache: (3) Dental abscess: (4) Diabetes mellitus, type II: (5) Tobacco abuse: (6) Swelling of face: (7) Severe pain: History of Present Illness History of Present Illness Oral Maxillofacial Surgery Exam Present Complaint: I have pain/swelling/drainage from my infected teeth lower right side Symptoms have been ongoing for a while. Was in the ER twice for pain that he could not tolerate The anterior right floor of the mouth is starting to swell as is the mucobuccal fold right side associated with teeth 28.29.30 Oral Exam: Finding--grossly carious/fractured teeth , tender gingival tissue with deep pocket formation Teeth are in an decayed and removal is clinical indicated. Imaging: CT soft tissue neck wo con HISTORY: 59 years-old Male concern for dental abscess, right side pain acute right neck pain FINDINGS: Subcentimeter probable lipoma of the left thyroid lobe. No pathologically enlarged lymph nodes. Unremarkable parotid and submandibular glands. The imaged intracranial structures appear unremarkable. The orbits are within normal limits. Epiglottis, glottis and subglottic airway appears normal. Partially imaged focal groundglass nodular opacity of the right upper lobe measures 1.7 cm on image 114 series 2. Small right and large left mastoid effusions. Minimal polypoid mucosal thickening of the maxillary sinuses. There is mild sigmoidal bowing and spurring of the nasal septum. Degenerative changes of the cervical spine. Numerous dental caries periapical cysts are most pronounced involving the right mandibular bicuspids and first molar. There is moderate cortical dehiscence adjacent to the first molar periapical cyst. No significant associated inflammatory changes or fluid collections. IMPRESSION: 1. Multifocal odontogenic disease. 2. No significant acute inflammatory changes or fluid collections. 3. No pathologically enlarged lymph nodes. 4. Partially imaged 1.7 cm groundglass nodular focus of the right upper lobe. Three-month follow-up chest CT recommended. Soft tissue: Early edema right floor of the mouth and mucobuccal space lower right The tongue, hard/soft palate, posterior pharyngeal area all with in normal limits, no pathology or abnormal findings noted. No lesions noted that require follow up or Bx. Oral Care: Overall oral care is fair Occlusion: Class I crowded TMJ exam: No pop, clicking, pain, good ROM, No history of TMJ injury or dysfunction Periodontal exam: Inflamed gingival tissue with evidence of periodontal pathology. Head/Neck exam: Neck is supple, FROM, Able to extend and flex neck w/o difficulty, no masses, no abnormalities, Very thick neck could lead to a difficult airway issue, strong evidence for sleep apnea. Treatment Plan: Due to the intolerable pain, early swelling, past medical history of DM, very thick neck admission for IV antibiotics and pain control is indicated. Set up with general anesthesia in hospital due to complexity of the procedure once he is cleared by Hospital medicine I reviewed the treatment plan and consent with the patient. Understanding was expressed. Time was given for questions regarding the surgery, risks and post op care. Discussed alternative to treatment--procedure as planned, Do not do surgery The following teeth are decayed and fractured and removal is indicated KINA 2,15,17,28,29,30 + I&D of the right mucobuccal space Risks discussed: Bleeding,Pain,swelling,infection, dry socket, delayed healing, nerve injury to face,lips,tongue,chin area which could be permanent (rare). TMJ, jaw stiffness, change in bite (rare), ear pain (referred). Sinus problems like fistula or infection. Need to leave a small root fragment in place to avoid injury to nerve or sinus. Relationship of wisdom teeth to nerve/sinus and risk of jaw fracture. Home care reviewed: tooth brushing, rinsing, follow up care with Dr Dee. diet=[id number] dental. Discussed activity level, driving/work while on Rx pain Meds. Surgery to be set up once he is cleared by Medicine and based on the add OR on schedule-OK for the planned surgery Allergies Allergy/AdvReac Type Severity Reaction Status Date / Time No Known Drug Allergies Allergy Verified 02/16/24 10:07 Home Medications Medication Instructions Recorded Confirmed Type albuterol sulfate 90 mcg/actuation 2 puffs inhalation Q4H PRN sob 08/18/19 02/11/25 History aerosol inhaler fluticasone 250 mcg-salmeterol 50 1 puffs inhalation BID 08/18/19 02/11/25 History mcg/dose blistr powdr for inhalation hydrochlorothiazide 50 mg tablet 50 mg PO DAILY 08/18/19 02/11/25 History levothyroxine 88 mcg tablet 88 mcg PO DAILY 08/18/19 02/11/25 History losartan 100 mg tablet 100 mg PO DAILY 08/18/19 02/11/25 History potassium chloride 10 mEq 20 meq PO DAILY 08/18/19 02/11/25 History tablet,extended release rosuvastatin 10 mg tablet 10 mg PO PM 08/18/19 02/11/25 History BiPap Machine #1 ea 03/15/22 02/11/25 Rx amlodipine 10 mg tablet 10 mg PO DAILY 02/11/25 02/11/25 History amoxicillin 875 mg-potassium 1 tab PO BID 02/11/25 02/11/25 History clavulanate 125 mg tablet armodafinil 250 mg tablet 250 mg PO QAM 02/11/25 02/11/25 History bupropion HCl 150 mg 24 hr tablet, 150 mg PO QAM 02/11/25 02/11/25 History extended release fluoxetine 40 mg capsule 40 mg PO DAILY 02/11/25 02/11/25 History levocetirizine 5 mg tablet 5 mg PO PM 02/11/25 02/11/25 History meloxicam 15 mg tablet 15 mg PO DAILY 02/11/25 02/11/25 History metformin 500 mg tablet,extended 500 mg PO DAILY 02/11/25 02/11/25 History release 24 hr metoprolol succinate 50 mg 50 mg PO DAILY 02/11/25 02/11/25 History tablet,extended release 24 hr montelukast 10 mg tablet 10 mg PO DAILY 02/11/25 02/11/25 History ropinirole 0.25 mg tablet 0.25 - 0.5 mg PO HS PRN periodic 02/11/25 02/11/25 History limb movement Patient History Medical History (Updated 02/12/25 @ 16:45 by Kris Dee DMD) Acute cholecystitis Diverticulosis Umbilical hernia, incarcerated Hernia Surgical History Hx of hernia repair Hx laparoscopic cholecystectomy Social History Smoking Status: Current every day smoker Tobacco Type: Cigarettes Cigarettes Per Day: 1 1/2 pack per day; Do You Dip or Chew Tobacco: No; Hx Alcohol Use: No Hx Substance Use: No Preferred Language: Maltese Communication Ability: Effective Chief Executive Officer Required: No Beliefs That Will Affect Care: None Current Living Situation: Other Current Living Situation Comment: 2 brothers Feels Safe at Home: Yes Safety Concerns: Feels Safe At This Time Assistive Devices: CPAP Assistive Devices Comment: Bipap HS- brother bringing in Results & Data Vital Signs (Past 12 Hours) Vital Signs Temp Pulse Pulse Resp BP BP Pulse Ox 02/11/25 17:06 67 22 143/77 H 94 02/11/25 15:29 58 L 20 142/69 H 94 02/11/25 13:30 67 16 133/75 96 02/11/25 11:42 36.7 C 88 20 142/79 H 96 O2 Del Method 02/11/25 17:06 Room Air 02/11/25 15:29 02/11/25 13:30 Room Air 02/11/25 11:42 Room Air PG Care Time/CCT Total # of Minutes Spent Total Time Spent with Patient: Total time spent is greater than 50% in coordination of care (as documented) at patient's floor/unit and/or counseling patient: Coding Level of Care Code 80443 OFFICE CONSULT LVL Diagnoses Dental caries K02.9 Toothache K08.89 Dental abscess K04.7 Diabetes mellitus, type II E11.9 Tobacco abuse Z72.0 Swelling of face R22.0 Severe pain R52
[2025-02-11] MEDS: NICOTINE 21 MG/24 HR TDSY TD SCH (18:02)
[2025-02-11] MEDS: ACETAMINOPHEN 500 MG TAB PO SCH (18:02)
[2025-02-11] MEDS: oxyCODONE HCL IR 5 MG TAB (IMMEDIATE RELEASE) PO PRN (18:05)
[2025-02-11] MEDS: INSULIN ASPART PER UNIT CHARGE SC SCH (18:06)
[2025-02-11] MEDS: HYDROmorphone INJ 0.5 MG/0.5 ML SYR IV PRN (20:40)
[2025-02-11] MEDS: ROSUVASTATIN CALCIUM 10 MG TAB PO SCH (20:45)
[2025-02-11] MEDS: CETIRIZINE HCL 10 MG TABLET PO SCH (21:30)
[2025-02-11] MEDS: KETOROLAC 30 MG/ML VIAL IV ONE (21:30)
[2025-02-11] MEDS: AMPICILLIN/SULBACTAM SOD 3,000 MG/100 ML BAG IV SCH (22:05)
[2025-02-12] MEDS: buPROPion XL 150 MG TABCR PO SCH (07:46)
[2025-02-12] MEDS: LEVOTHYROXINE SODIUM 88 MCG TABLET PO SCH (07:46)
[2025-02-12] MEDS: LOSARTAN POTASSIUM 50 MG TAB PO SCH (07:46)
[2025-02-12 07:47] LABS: Hematocrit (blood only) 38.4 % (42.0-52.0); Hemoglobin 13.3 g/dl (14.0-18.0); Mean Corpuscular Hemoglobin 29.6 pg (25.0-34.0); Mean Corpuscular Hgb Conc 34.6 g/dL (32.0-36.0); Mean Corpuscular Volume 85.5 fL (80.0-100.0); Mean Platelet Volume 10.4 fL (9.4-12.4); Platelet Count 135 K/uL (130-400); RDW Coefficient of Variation 13.4 % (11.5-14.5); RDW Standard Deviation 42.4 fL (36.4-46.3); Red Blood Count 4.49 M/uL (4.70-6.10); White Blood Count 7.53 K/ul (4.8-10.8)
[2025-02-12] MEDS: amLODIPine BESYLATE 5 MG TAB PO SCH (07:47)
[2025-02-12] MEDS: METOPROLOL SUCC 50MG EXT REL TAB PO SCH (07:47)
[2025-02-12] MEDS: FLUoxetine HCL 20 MG CAP PO SCH (07:47)
[2025-02-12] MEDS: MONTELUKAST SODIUM 10 MG TABLET PO SCH (07:49)
[2025-02-12 08:05] LABS: BUN Creatinine Ratio 16.5 (10-20); Calcium 8.6 mg/dl (8.6-10.3); Creatinine Clr Calc Pharmacy 123.8 ml/min; Potassium 3.4 mmol/L (3.5-5.1)
--- NOTE | 2025-02-12 09:00 | Hospitalist Progress Note ---
Date of Service February 12, 2025 Assessment & Plan (1) Dental abscess: (2) Dental caries: (3) Fracture of tooth: (4) Diabetes mellitus, type II: (5) Adult hypothyroidism: (6) Obesity: (7) Obstructive sleep apnea: (8) COPD (chronic obstructive pulmonary disease): (9) Tobacco abuse: (10) Hypokalemia: Plan Patient 59-year-old gentleman with severe dental infection requiring IV antibiotics and IV pain control Continue antibiotics Reviewed OMFS recommendation, anticipate surgical intervention within the next 24 hours Replace potassium Patient medically maximized for anticipated surgical intervention Continue to monitor glucose, managed with short acting insulin Continue inhalers, respiratory status stable Continue other outpatient medications as ordered Admission and Anticipated Discharge Date Admission Date: February 11, 2025 Subjective Patient states that Toradol is controlling his pain pretty well. No chest pain or shortness of breath. Physical Exam Physical Exam: Constitutional: Alert, morbidly obese HEENT: Mucous membranes moist. Multiple dental caries, no purulent discharge noted from gums Lungs: Clear to auscultation, decreased, no wheezes rales or rhonchi CV: S1-S2, regular Abdomen: Soft, nontender, nondistended Extremities: No significant edema Neuro: No focal deficits Psych: Cooperative, normal mood Results & Data Results & Data Vital Signs (Past 12 Hours) Vital Signs Temp Pulse Resp BP Pulse Ox O2 Del Method 02/12/25 08:11 36.5 C 72 17 167/69 H 96 Room Air Diagnostic Findings Reviewed imaging, laboratory and diagnostic studies. Pertinent findings as below. WBCs 7.5 Potassium 3.4 Creatinine 0.91 Glucose was reviewed (3) Fracture of tooth Encounter type: initial encounter Fracture type: closed Qualified Code(s): S02.5XXA - Fracture of tooth (traumatic), initial encounter for closed fracture
[2025-02-12 09:01] LABS: Estimated Average Glucose 169 mg/dl; Hemoglobin A1C 7.5 % (4.5-5.6)
[2025-02-12] MEDS: POTASSIUM CHLORIDE CRTAB 20 MEQ TABCR PO STA (09:40)
[2025-02-12] MEDS: FLUTICASONE/VILANTEROL 100/25MCG 14 PUFFS/INHALER INH SCH (09:40)
[2025-02-12] MEDS: DOCUSATE SODIUM 100 MG CAP PO SCH (09:43)
[2025-02-12] MEDS: KETOROLAC 30 MG/ML VIAL IV PRN (11:10)
[2025-02-12] MEDS: POTASSIUM CHLORIDE 10 MEQ TABCR PO SCH (11:33)
--- NOTE | 2025-02-12 14:12 | Electrocardiogram Report ---
Test Reason : Blood Pressure : */* mmHG Vent. Rate : 62 BPM Atrial Rate : 62 BPM P-R Int : 198 ms QRS Dur : 96 ms QT Int : 452 ms P-R-T Axes : 58 21 43 degrees QTcB Int : 458 ms Normal sinus rhythm Low voltage QRS Borderline ECG When compared with ECG of 29-Mar-2018 17:24, No significant change was found Confirmed by Thompson Lin ([id number]) on 02/12/2025 2:12:22 PM Referred By: REFERRED SELF Confirmed By: Thompson Lin
[2025-02-12] MEDS ORDERED: DEXAMETHASONE SOD INJ 4 MG/ML VIAL ONE (15:34)
[2025-02-12] MEDS ORDERED: PROPOFOL IV EMULSION 10 MG/ML 20 ML VIAL IV ONE (15:34)
[2025-02-12] MEDS ORDERED: ONDANSETRON INJ 2 MG/ML 2 ML VIAL ONE (15:34)
[2025-02-12] MEDS ORDERED: ROCURONIUM BROMIDE 10 MG/ML 5 ML VIAL IV ONE (15:34)
[2025-02-12] MEDS ORDERED: MIDAZOLAM HCL 1 MG/ML 2ML VIAL ONE (15:34)
[2025-02-12] MEDS ORDERED: LIDOCAINE 2% 2 ML VIAL/AMP(20MG/ML) INFIL ONE (15:34)
[2025-02-12] MEDS ORDERED: fentaNYL citrate PF 100 MCG/2 ML VIAL ONE (15:34)
--- NOTE | 2025-02-12 16:16 | Anesthesiology Consultation ---
Date of Service February 12, 2025 Assessment & Plan ASA ASA3 Proposed Anesthesia Anesthesia Type: General Risk / Benefits Reviewed With: PT / POA / Parent / Guardian, Accepts Plan and Informed Consent Obtained History Surgery Operation Date: 02/12/25 08:25 Proposed Procedures p Right Lower Side Incision and Drainage - Kris Dee DMD s Teeth Extraction x 6 - Kris Dee DMD Height/Weight Height: 5 ft 8 in Weight: 141.7 kg Allergies Allergy/AdvReac Type Severity Reaction Status Date / Time No Known Drug Allergies Allergy Verified 02/16/24 10:07 Medications Home Medications Medication Instructions Recorded Confirmed Last Taken albuterol sulfate 90 mcg/actuation 2 puffs inhalation Q4H PRN sob 08/18/19 02/11/25 Unknown aerosol inhaler fluticasone 250 mcg-salmeterol 50 1 puffs inhalation BID 08/18/19 02/11/25 Unknown mcg/dose blistr powdr for inhalation hydrochlorothiazide 50 mg tablet 50 mg PO DAILY 08/18/19 02/11/25 Unknown levothyroxine 88 mcg tablet 88 mcg PO DAILY 08/18/19 02/11/25 Unknown losartan 100 mg tablet 100 mg PO DAILY 08/18/19 02/11/25 02/11/25 potassium chloride 10 mEq 20 meq PO DAILY 08/18/19 02/11/25 Unknown tablet,extended release rosuvastatin 10 mg tablet 10 mg PO PM 08/18/19 02/11/25 Unknown BiPap Machine #1 ea 03/15/22 02/11/25 Unknown amlodipine 10 mg tablet 10 mg PO DAILY 02/11/25 02/11/25 02/11/25 amoxicillin 875 mg-potassium 1 tab PO BID 02/11/25 02/11/25 02/11/25 clavulanate 125 mg tablet armodafinil 250 mg tablet 250 mg PO QAM 02/11/25 02/11/25 02/11/25 bupropion HCl 150 mg 24 hr tablet, 150 mg PO QAM 02/11/25 02/11/25 Unknown extended release fluoxetine 40 mg capsule 40 mg PO DAILY 02/11/25 02/11/25 02/11/25 levocetirizine 5 mg tablet 5 mg PO PM 02/11/25 02/11/25 Unknown meloxicam 15 mg tablet 15 mg PO DAILY 02/11/25 02/11/25 Unknown metformin 500 mg tablet,extended 500 mg PO DAILY 02/11/25 02/11/25 02/11/25 release 24 hr metoprolol succinate 50 mg 50 mg PO DAILY 02/11/25 02/11/25 02/11/25 tablet,extended release 24 hr montelukast 10 mg tablet 10 mg PO DAILY 02/11/25 02/11/25 Unknown ropinirole 0.25 mg tablet 0.25 - 0.5 mg PO HS PRN periodic 02/11/25 02/11/25 Unknown limb movement Active Medications Generic Name Dose Route Start Last Admin Trade Name Freq PRN Reason Stop Dose Admin Acetaminophen 1,000 mg 02/11/25 17:30 02/12/25 09:43 Acetaminophen 500 Mg Tab PO 03/13/25 17:29 Not Given Q8H MAYA Amlodipine Besylate 10 mg 02/12/25 09:00 02/12/25 07:47 Amlodipine Besylate 5 Mg Tab PO 03/14/25 08:59 10 mg DAILY MAYA Administration Bupropion HCl 150 mg 02/12/25 09:00 02/12/25 07:46 Bupropion Xl 150 Mg Tabcr PO 03/14/25 08:59 150 mg QAM MAYA Administration Cetirizine HCl 5 mg 02/11/25 21:00 02/11/25 21:30 Cetirizine Hcl 10 Mg Tablet PO 03/13/25 20:59 5 mg PM MAYA Administration Docusate Sodium 100 mg 02/12/25 09:00 02/12/25 09:43 Docusate Sodium 100 Mg Cap PO 03/14/25 08:59 Not Given DAILY MAYA Fluoxetine HCl 40 mg 02/12/25 09:00 02/12/25 07:47 Fluoxetine Hcl 20 Mg Cap PO 03/14/25 08:59 40 mg DAILY MAYA Administration Fluticasone/Vilanterol 1 puffs 02/12/25 09:00 02/12/25 09:40 Fluticasone/Vilanterol 100/25mcg 14 Puffs/Inhaler INH 03/14/25 08:59 1 puffs DAILY MAYA Administration Ampicillin Sodium/Sulbactam Sodium 3,000 mg in 100 mls @ 200 mls/hr 02/11/25 22:00 02/12/25 11:53 Unasyn IV 02/21/25 21:59 Infused Q6H MAYA Infusion Insulin Aspart 0 units 02/11/25 17:30 02/12/25 12:18 Insulin Aspart Per Unit Charge SC 03/13/25 17:29 Not Given ACHS MAYA Ketorolac Tromethamine 30 mg 02/12/25 08:52 02/12/25 11:10 Ketorolac 30 Mg/Ml Vial IV 30 mg Q6H PRN Administration Pain Levothyroxine Sodium 88 mcg 02/12/25 06:30 02/12/25 07:46 Levothyroxine Sodium 88 Mcg Tablet PO 03/14/25 06:29 88 mcg DAILYBB MAYA Administration Losartan Potassium 100 mg 02/12/25 09:00 02/12/25 07:46 Losartan Potassium 50 Mg Tab PO 03/14/25 08:59 100 mg DAILY MAYA Administration Metoprolol Succinate 50 mg 02/12/25 09:00 02/12/25 07:47 Metoprolol Succ 50mg Ext Rel Tab PO 03/14/25 08:59 50 mg DAILY MAYA Administration Miscellaneous 1 each 02/12/25 08:59 02/12/25 09:10 Remove Nicoderm Patch N/A 03/14/25 08:58 Not Given DAILY@0859 MAYA Miscellaneous 1 each 02/12/25 00:00 02/12/25 09:07 Armodafinil 250 Mg Tablet--Order Awaiting Action N/A 03/14/25 00:00 Not Given QS MAYA Montelukast Sodium 10 mg 02/12/25 09:00 02/12/25 07:49 Montelukast Sodium 10 Mg Tablet PO 03/14/25 08:59 10 mg DAILY MAYA Administration Nicotine 1 patch 02/11/25 17:30 02/12/25 09:09 Nicotine 21 Mg/24 Hr Tdsy TD 03/13/25 17:29 Not Given QAM MAYA Oxycodone HCl 10 mg 02/11/25 17:30 02/12/25 07:43 Oxycodone Hcl Ir 5 Mg Tab (Immediate Release) PO 02/25/25 17:29 10 mg Q4H PRN Administration SEVERE Pain (7,8,9,10) Potassium Chloride 20 meq 02/12/25 09:00 02/12/25 11:33 Potassium Chloride 10 Meq Tabcr PO 03/14/25 08:59 20 meq DAILY MAYA Administration Rosuvastatin Calcium 10 mg 02/11/25 21:00 02/11/25 20:45 Rosuvastatin Calcium 10 Mg Tab PO 03/13/25 20:59 10 mg PM MAYA Administration NPO Date Last Intake of Fluids: 02/11/25 Time Last Intake of Fluids: 19:00 Date Last Intake of Solids: 02/11/25 Time Last Intake of Solids: 19:00 Past Medical History Medical History Acute cholecystitis Diverticulosis Umbilical hernia, incarcerated Hernia Exercise / Class Metabolic Activity II 4-5 Yardwork/Stairs/Walk up hill Past Surgical History Surgical History Hx of hernia repair Hx laparoscopic cholecystectomy Past Anesthesia History No Hx of Anesthesia Complications and No Family Hx of Anesthesia Complications History of PONV No Hx of PONV and No Hx of Motion Sickness Social History Smoking Status: Current every day smoker Smoking cigarettes per day: 1 1/2 pack per day Do You Dip or Chew Tobacco: No Hx Alcohol Use: No Hx Substance Use: No Review of Systems denies fever/cough/ colds/ chest pain/ SOB/ KAMRYN denies KAMRYN Physical Exam Vital Signs Last Vital Signs Temp 36.9 C 02/12/25 15:45 Pulse 69 02/12/25 15:45 Resp 20 02/12/25 15:45 BP 154/75 H 02/12/25 15:45 Pulse Ox 97 02/12/25 15:45 O2 Del Method Room Air 02/12/25 15:45 ENMT Mouth: no TMJ abnormality and no dentition abnormality Thyromental Distance: > or= 3.5 Finger Breadths Mallampati Class: II Neck neck extension not limited Respiratory normal respiratory effort; no respiratory distress Auscultation: lungs clear to auscultation bilaterally Cardiovascular Rate/Rhythm: regular rate and regular rhythm Neurologic moves all extremities Psychiatric Orientation: alert and oriented x 3 Testing Laboratory Results 02/12/25 07:01 02/12/25 07:01 Hemoglobin A1c 7.5 % (4.5-5.6) H 02/12/25 07:01 02/12/25 02/12/25 02/12/25 16:09 11:54 05:57 POC Glucose 131 H 146 H 121 H
--- NOTE | 2025-02-12 16:46 | History & Physical Bridge Note ---
Date of Service February 12, 2025 History & Physical Bridge Note I have examined the patient, reviewed the History & Physical and in the interval since the performance of the History & Physical I have noted the following changes of clinical significance: no changes noted. OK for the planned surgery -- I&D right side lower and extraction of 2,15,17,28,29,30
[2025-02-12] MEDS: CHLORHEXIDINE GLUCONATE 0.12% 480 ML MT ONE (17:34)
[2025-02-12] MEDS: BUPIVACAINE/EPINEPHRINE 0.5% 1:200,000 1.8 ML CARP ONE (17:35)
[2025-02-12] MEDS ORDERED: SUGAMMADEX SODIUM 200 MG/2 ML VIAL IV ONE (17:42)
[2025-02-12] MEDS ORDERED: KETOROLAC 30 MG/ML VIAL ONE (17:42)
[2025-02-12] MEDS ORDERED: fentaNYL citrate PF 100 MCG/2 ML VIAL IV PRN (17:58)
[2025-02-12] MEDS ORDERED: ONDANSETRON INJ 2 MG/ML 2 ML VIAL IV PRN (17:58)
[2025-02-12] MEDS ORDERED: ATROPINE SULFATE 0.1 MG/ML 10ML SYR IV PRN (17:58)
[2025-02-12] MEDS ORDERED: ePHEDrine sulfate 50 MG/ML AMP IV PRN (17:58)
[2025-02-12] MEDS ORDERED: HYDROmorphone INJ 1 MG/ML SYRINGE IV PRN (17:58)
--- NOTE | 2025-02-12 18:22 | Post Operative Brief Note ---
PG Immediate Post Op with CF Date of Surgery February 12, 2025 Pre & Post Diagnosis Operation Date: 02/12/25 08:25 Pre-Op Diagnosis: Dental Carries, Dental Infection Post-Op Diagnosis: Dental Carries, Dental Infection I identified the patient and participated in the time-out.: Yes Procedure Operation Date: 02/12/25 08:25 Actual Procedures p Right Lower Side Incision and Drainage(Right) - Kris Dee DMD s Teeth Extraction #2,15,17,27,28,29,30 - rKis Dee DMD Surgeon Kris Dee DMD Child Monitor none Estimated Blood Loss 5 Findings Consistent with Post-Op Diagnosis intense pain, swelling lower right jaw and carious teeth Specimens Specimen Description: none Anesthesia Type General Complications none Disposition Accompanied Patient To Recovery: Yes
--- NOTE | 2025-02-12 18:38 | Operative Report ---
PG Post Operative Report Pre & Post Diagnosis Operation Date: 02/12/25 08:25 Pre-Op Diagnosis: Dental Carries, Dental Infection Post-Op Diagnosis: Dental Carries, Dental Infection I identified the patient and participated in the time-out.: Yes Procedure Operation Date: 02/12/25 08:25 Actual Procedures p Right Lower Side Incision and Drainage(Right) - Kris Dee DMD s Teeth Extraction #2,15,17,27,28,29,30 - Kris Dee DMD Surgeon Kris Dee DMD Inletter none Estimated Blood Loss 5 Findings Consistent with Post-Op Diagnosis Specimens none Drains none Anesthesia Type General Complications none Disposition Accompanied Patient To Recovery: Yes Indications intense pain, swelling and infected abscess teeth Description of Procedure Actual Procedures p Incision and Drainage Submandibular Abscess; Removal of Tooth #27,28,29,30 (Not Applicable) - Kris Dee DMD Removal of other abscessed grossly infected teeth teeth 2,15,17 CPT 71252 D7140 x 5---27,28,29,30 and 17 Simple ext D7210 x 2---2 and 15 Surgical ext Once cleared for surgery general anesthesia was achieved, the eyes were protected by the anesthesia dept criteria. A time out was take for patient ID, antibiotics, equipment and position verification once all agreed the procedure began. Local anesthesia using Marcaine with a vasoconstrictor ( 1.8 ml per site) given into right inferior alveolar nerve A throat pack was placed after the oral cavity was irrigated with saline. Once a surgical level of anesthesia was obtained and the local anesthesia was given time for the blocks the surgery was started. I turned my attention to the infection which was located in the floor of the mouth and submental area. The tongue was elevated and there was also swelling associated with tooth #27,28,29,30 Incision and Drainage CPT 05795 Using a 15 blade an incision was made lateral to the alveolar ridge in the swollen mucobuccal fold lower right side Once the incision was made a lot of pus extruded from the site. The surround soft tissue was grossly infected and bleed very easy. A curved hemostat was carefully placed into the infected space along the lateral side of the lower jaw and into the submandibular space Some further drainage was now allowed to escape. I palpated the check and submandibular area and no further drainage was expressed. The area was irrigated with at least 100 ml of NS solution. I now turned my attention to remove grossly infected teeth # 27,28,29,30 Lower # 27,28,29,30 and 17--------- D7140 x 5 The full thick Muco-periosteal flap was made on the facial aspect from # 26-31. The flap was reflected to expose the the subperiosteal space and the bone adjacent to #the 27-30 teeth. The rongeur was used to remove bone, the tooth was removed with a 301 elevator and dental forceps , the mental nerve was intact, there was a large amount of granulation tissue on the apex which was curettaged and some more pus that was expressed. The area was irrigated, bone and soft tissue trimmed and sutured with a 2-0 chromic. also removed was a fractured # 17 with local swelling in the routine manor for a simple extraction. Upper # 2 and 15 Surgical of 2 upper teeth D7210 x 2 The full thick Muco-periosteal flap was made around # 2 and # 15 it was reflected to expose the the subperiosteal space and the bone adjacent to tooth # 2 and# 15 The rongeur was used to remove bone, the tooth was removed with a 301 elevator and dental forceps , there was a large amount of granulation tissue on the apex which was curettaged . The sinus was intact. The area was irrigated, bone and soft tissue trimmed and sutured with a 2-0 chromic I inspected the sites to insure all bleeding was controlled. I removed the throat pack and suctioned the throat. Bilateral gauze pressure dressings were placed. All instrument and sponge count was correct. The patient was allowed to awake from the anesthesia. Once full awake the anesthesia tube was removed and the patient was taken to the recovery room with all vital sign stable. The patient tolerated the surgery very well. I will see Esperanza tomorrow and plan for discharge I will follow the patient in my office, Rx and instructions will be given upon discharged . I attest to the content of the Intraoperative Record and any orders documented therein. Any exceptions are noted below.
--- NOTE | 2025-02-12 19:32 | Anesthesiology Progress Note ---
Date of Service February 12, 2025 Anesthesia Post Procedure Vital Signs Vital Signs: Temp Pulse Pulse Pulse Resp BP Pulse Ox 02/12/25 19:22 67 13 156/76 H 96 02/12/25 19:10 66 19 158/71 H 97 02/12/25 19:00 65 17 158/72 H 97 02/12/25 18:50 66 14 159/73 H 96 02/12/25 18:40 36.2 C L 63 15 150/71 H 99 02/12/25 18:30 65 19 147/73 H 100 02/12/25 18:20 66 18 143/76 H 96 02/12/25 18:15 63 18 97 02/12/25 18:13 36.5 C 62 12 150/71 H 100 02/12/25 15:45 36.9 C 69 20 154/75 H 97 02/12/25 14:36 36.6 C 62 16 175/80 H 93 02/12/25 13:26 36.5 C 72 17 148/80 H 94 02/12/25 08:11 36.5 C 72 17 167/69 H 96 02/11/25 19:55 36.9 C 69 18 143/74 H 95 O2 Del Method O2 Flow Rate FiO2 02/12/25 19:22 Nasal Cannula 2 02/12/25 19:10 Nasal Cannula 2 02/12/25 19:00 Nasal Cannula 2 02/12/25 18:50 Nasal Cannula 2 02/12/25 18:40 Nasal Cannula 2 02/12/25 18:30 CPAP 02/12/25 18:20 CPAP 02/12/25 18:15 30 02/12/25 18:13 CPAP 02/12/25 15:45 Room Air 02/12/25 14:36 Room Air 02/12/25 13:26 Room Air 02/12/25 08:11 Room Air 02/11/25 19:55 Room Air Pain Intensity Right Jaw: Pain Intensity: 2 Transfer of Care Handoff Completed per policy Notes Mental Status: alert / awake / arousable and participated in evaluation Patient Amnestic to Procedure: Yes Nausea / Vomiting: adequately controlled Pain: adequately controlled Airway Patency, RR, SpO2: stable & adequate BP & HR: stable & adequate Hydration State: stable & adequate Anesthetic Complications: no major complications apparent and Pt Satisfied with anesthetic care
[2025-02-12] MEDS: rOPINIRole HCL 0.25 MG TABLET PO PRN (21:52)
[2025-02-12 23:09] VITALS: RESP 16
[2025-02-13] MEDS: oxyCODONE HCL IR 5 MG TAB (IMMEDIATE RELEASE) PO PRN (00:28)
[2025-02-13 02:43] VITALS: O2SAT 96
[2025-02-13 05:34] VITALS: BP 173/90; PULSE 79; TEMP 98.4
--- NOTE | 2025-02-13 12:31 | Progress Note ---
Date of Service February 13, 2025 Assessment & Plan Admission and Anticipated Discharge Date Admission Date: February 12, 2025 Subjective Post Op infection evaluation at 24 hours The infected area is resolving very well. Swelling is gone and the tissue is almost back to normal in size and texture. No further drainage is noted. Infection has responded very well to the antibiotics, extractions and the I and D. I requested that the patient continue with massage, heat and wound care. At this time the area is well healed and responded well to treatment, no further treatment needed. He will call my office to arrange follow up care for 10-20 from today Overall excellent response Results & Data Vital Signs (Past 12 Hours) Vital Signs Temp Pulse Resp BP Pulse Ox O2 Del Method O2 Flow Rate 02/13/25 10:15 Room Air 02/13/25 05:33 36.9 C 79 16 173/90 H 96 Nasal Cannula 2 02/13/25 03:20 155/81 H 02/13/25 02:42 36.7 C 75 16 172/85 H 96 Nasal Cannula 2 PG Care Time/CCT Total # of Minutes Spent Total Time Spent with Patient: Total time spent is greater than 50% in coordination of care (as documented) at patient's floor/unit and/or counseling patient: Coding Level of Care Code None
--- NOTE | 2025-02-13 12:45 | Discharge Summary ---
Discharge Summary Date of Service February 13, 2025 Principal Dx & Hospital Course #1 = Principal Diagnosis (1) Dental abscess: (2) Dental caries: (3) Fracture of tooth: (4) Diabetes mellitus, type II: (5) Adult hypothyroidism: (6) Obesity: (7) Obstructive sleep apnea: (8) COPD (chronic obstructive pulmonary disease): (9) Tobacco abuse: (10) Hypokalemia: Plan Patient 59-year-old gentleman presented with significant oral pain and evidence of infection, abscess and multiple dental caries. Patient was admitted to hospital. Given pain control and IV antibiotics. Oral surgeon was consulted and evaluated patient. Patient was taken to the operating room And had incision and drainage of the right side of his lower mouth as well as extraction of teeth #2, 15, 17, 27, 28, 29, 30. Patient's postoperative course was uneventful. His diet was advanced. He tolerated this well. His pain was controlled. He can transition to oral antibiotics and follow-up with his outpatient providers. While here in the hospital I did see diabetes education as well. Will increase his metformin to twice daily dosing for better glucose control. He can follow with PCP for ongoing diabetes management as well as management of his hyper tension. Notes For Next Care Provider Will follow with oral surgery May need additional treatment for diabetes and hypertension Medication Changes From Visit Augmentin for dental infection Metformin dose increased to 2 times daily Motrin as needed for pain Admission HPI Per Admitting Provider Patient is 59 year old male with PMH HTN, dyslipidemia, DM II, KAMRYN, RLS, periodic limb movement disorder, asthma, COPD, hypothyroidism, morbid obesity, tobacco use presented to ER with c/o dental pain x 4 days. Patient reports that he has known dental fracture about one year ago and at that time saw his dentist and was given antibiotics and pain resolved and was referred to oral surgeon however patient states did not follow up. He states 4 days ago started with pain to right lower teeth he feels in area of old dental fracture. He was started on Augmentin and taking OTC pain medication without relief. He was seen at [facility] ER yesterday and given Tramadol. Hasn't noticed facial edema. States pain is severe and not controlled. Has chronic leg swelling. Having some STUBBS. Denies fever/chills, N/V/D/C, dysphagia, dizziness, syncope, vision changes, neck pain, CP, SOB, palpitations, cough, sore throat, choking, otalgia, rhinorrhea, abdominal pain, paresthesias, extremity weakness, rashes, urinary symptoms. Admission Exam Per Admitting Provider See H&P Discharge Exam Constitutional: Alert, nontoxic HEENT: Mucous membranes moist., Surgical sites in the mouth clean, no significant purulent discharge, no bleeding Lungs: Clear to auscultation, decreased, no wheezes rales or rhonchi CV: S1-S2, regular Abdomen: Soft, nontender, nondistended Extremities: No significant edema Neuro: No focal deficits Psych: Cooperative, normal mood Updated Medication List Medication Instructions Recorded Confirmed Type albuterol sulfate 90 mcg/actuation 2 puffs inhalation Q4H PRN sob 08/18/19 02/11/25 History aerosol inhaler fluticasone 250 mcg-salmeterol 50 1 puffs inhalation BID 08/18/19 02/11/25 History mcg/dose blistr powdr for inhalation hydrochlorothiazide 50 mg tablet 50 mg PO DAILY 08/18/19 02/11/25 History levothyroxine 88 mcg tablet 88 mcg PO DAILY 08/18/19 02/11/25 History losartan 100 mg tablet 100 mg PO DAILY 08/18/19 02/11/25 History potassium chloride 10 mEq 20 meq PO DAILY 08/18/19 02/11/25 History tablet,extended release rosuvastatin 10 mg tablet 10 mg PO PM 08/18/19 02/11/25 History BiPap Machine #1 ea 03/15/22 02/11/25 Rx amlodipine 10 mg tablet 10 mg PO DAILY 02/11/25 02/11/25 History armodafinil 250 mg tablet 250 mg PO QAM 02/11/25 02/11/25 History bupropion HCl 150 mg 24 hr tablet, 150 mg PO QAM 02/11/25 02/11/25 History extended release fluoxetine 40 mg capsule 40 mg PO DAILY 02/11/25 02/11/25 History levocetirizine 5 mg tablet 5 mg PO PM 02/11/25 02/11/25 History meloxicam 15 mg tablet 15 mg PO DAILY 02/11/25 02/11/25 History metoprolol succinate 50 mg 50 mg PO DAILY 02/11/25 02/11/25 History tablet,extended release 24 hr montelukast 10 mg tablet 10 mg PO DAILY 02/11/25 02/11/25 History ropinirole 0.25 mg tablet 0.25 - 0.5 mg PO HS PRN periodic 02/11/25 02/11/25 History limb movement acetaminophen 325 mg tablet 650 mg (2 x 325 mg) PO Q4H PRN 02/13/25 Rx (Tylenol) pain #300 tabs amoxicillin 875 mg-potassium 1 tab PO BID 5 days #10 tabs 02/13/25 Rx clavulanate 125 mg tablet chlorhexidine gluconate 0.12 % 15 ml buccal BID #473 mL 02/13/25 Rx mouthwash (Peridex) ibuprofen 600 mg tablet 600 mg PO Q8H PRN pain #10 tabs 02/13/25 Rx metformin 500 mg tablet,extended 500 mg PO BID #60 tabs 02/13/25 Rx release 24 hr nicotine 21 mg/24 hr daily 1 patch transdermal QAM #14 ea 02/13/25 Rx transdermal patch (Nicoderm CQ) Hospital Stay Data Consultations 02/11/25 14:45 ED Decision to Admit Stat 02/11/25 17:30 Consult Oromaxillofacial Surgery Routine Procedures Performed Operation Date: 02/12/25 08:25 Actual Procedures p Right Lower Side Incision and Drainage(Right) - Kris Dee DMD s Teeth Extraction #2,15,17,27,28,29,30 - Kris Dee DMD Diagnostic Imagining Performed 02/11/25 12:02 CT soft tissue neck wo con Stat Reviewed imaging, laboratory and diagnostic studies. Pertinent findings as below. WBCs 7.5 Hemoglobin 13.3 Electrolytes stable Potassium was repleted Hemoglobin A1c 7.5% Pending Results Patient Have Any Pending Studies at Discharge: No Discharge Instructions Given to Patient (Per Discharging Provider) ADDITIONAL ACTIVITY RECOMMENDATIONS: * [place] teeth after every meal. It is very important to keep your mouth clean to prevent infection. * Starting tonight rinse with the Peridex as directed then 2 x a day * it is very important to keep well hydrated, this prevents fever and possible dry socket pain SPECIAL CARE INSTRUCTIONS: *It is not uncommon that between day 2-4 that your swelling will be at its worst this is very normal, do not be alarmed. * Keep ice on the side of your face for the next 24 to 36 hours. This will help keep the swelling down. * After 36 hours, apply heat (hot water bottle or heating pad) for the next two days, as often as possible. * Tomorrow start rinsing your mouth with 1/2 teaspoon salt in 8 ounces warm water. This rinse should be used every 4-6 hours. * You may experience slight nausea. To prevent this, never take your medication on an empty stomach. If nauseated, take small sips of bari laly until you feel better; then you may start on applesauce and toast. * A certain amount of bleeding is to be expected. It is often possible to control mild oozing by placing folded gauze over the area and biting down for 30 minutes. If you are unable to control excessive bleeding, call Dr Dee at [phone] * You may experience some discomfort for a few days. If pain or swelling increases, Call Dr Dee * Return to the office for a follow up check up on: ple call office to set up follow up for 10-20 days * office address--[address] phone # [phone] Total Time Total Time Spent Total Time Spent (In Minutes): 32
== END 2025-02-13 15:50 | disposition home or self-care (01) | DRG 159 ==
LOC: 3N 11:27 → ED 11:27 → SUATTDRO 15:18 → 3N 17:06